=== PATIENT | male | born 1950 | race Hispanic/Latino ===

== ENCOUNTER 2018-06-24 06:07 | Inpatient (IN) | payer MEDICARE, OTHER ==
[2018-06-15 16:38] VITALS: BMI 27.7
[2018-06-24 06:57] LABS: BASO # 0.1 K/uL (0.0-0.2); BASO % 1.1 % (0.0-2.0); EOS # 0.2 K/uL (0.0-0.7); EOS % 2.4 % (0.0-4.0); HEMOGLOBIN 14.5 g/dL (12.0-18.0); LYMPH # 1.5 K/uL (1.0-4.3); LYMPH % 21.8 % (20.0-40.0); MEAN CELL VOLUME 93.4 fl (80.0-94.0); MEAN CORPUSCULAR HEMOGLOBIN 31.2 pg (27.0-31.0); MEAN CORPUSCULAR HGB CONC 33.4 g/dL (33.0-37.0); MEAN PLATELET VOLUME 8.7 fl (7.2-11.7); MONO # 0.5 K/uL (0.0-0.8); MONO % 7.3 % (0.0-10.0); NEUT # 4.6 K/uL (1.8-7.0); NEUT % 67.4 % (50.0-75.0); RBC 4.65 Mil/uL (4.40-5.90); RED CELL DISTRIBUTION WIDTH 14.3 % (11.5-14.5); WHITE BLOOD COUNT 6.8 K/uL (4.8-10.8)
--- NOTE | 2018-06-24 06:57 | CP.PCM.CON ---
History of Present Illness - History of Present Illness History of Present Illness: PMD; Dr Alvarez Ophthmologist: Dr Bauer Pc Tech: Raul Bowman MD Chief Complaint: Left hip Pain The Patient was seen and examined in the SDS Unit HPI: This is a 68 years old male with hx of CAD, HLD distant A Fib and left hip osteoarthritis. He has suffered this left hip pain while leaning on the left side and even while sleeping for years. Her has failed conventional treatment and has decided to have surgical management. At present he refers no SOB, chest pain nor palpitations. No fever, diarrhea nor urinary symptoms. PMH: HLD; a fIB; Herneated disc with back pain PSH: Coronary stents placementX5 SH: No illegal drug use; No smoking; No ETOH use; Live with FH: Significant for Past Patient History - Past Medical History & Family History Past Medical History?: Yes - Past Social History Smoking Status: Never Smoked - CARDIAC Hx Cardiac Disorders: Yes Hx Angina: Yes Hx Hypercholesterolemia: Yes Hx Hypertension: Yes Other/Comment: AFIB - PULMONARY Hx Respiratory Disorders: No - NEUROLOGICAL Hx Neurological Disorder: No - HEENT Hx HEENT Problems: No - RENAL Hx Chronic Kidney Disease: No - ENDOCRINE/METABOLIC Hx Endocrine Disorders: No - HEMATOLOGICAL/ONCOLOGICAL Hx Blood Disorders: No Hx Blood Transfusions: No Other/Comment: EASING BRUISING DUE TO BLOOD THINNER - INTEGUMENTARY Hx Dermatological Problems: No - MUSCULOSKELETAL/RHEUMATOLOGICAL Hx Musculoskeletal Disorders: Yes Hx Back Pain: Yes Hx Falls: No Hx Herniated Disk: Yes (5 HERNIATED DISC) - GENITOURINARY/GYNECOLOGICAL Hx Genitourinary Disorders: No - PSYCHIATRIC Hx Psychophysiologic Disorder: No - SURGICAL HISTORY Hx Surgeries: Yes Hx Angioplasty: Yes (X5) Hx Coronary Stent: Yes (X4) - ANESTHESIA Hx Anesthesia: Yes Hx Anesthesia Reactions: No Hx Malignant Hyperthermia: No Has any member of the family had a problem w/ anesthesia?: No Meds Allergies/Adverse Reactions: Allergies Allergy/AdvReac Type Severity Reaction Status Date / Time No Known Allergies Allergy Verified 06/24/18 06:45 Results - Labs Result Diagrams: 06/24/18 06:40 Assessment & Plan - Date & Time Date: 06/24/18 Time: 06:56
[2018-06-24] MEDS ORDERED: Lactated Ringer's 1,000 ML IV ONE ×4 (07:10→12:32)
[2018-06-24] MEDS ORDERED: Absorbable Gelatin Sponge Size 12-7 ONE ×3 (07:18→11:28)
[2018-06-24] MEDS ORDERED: ceFAZolin IV 1 gm in Dextrose 2 GM/100 ML BAG IVPB ONE (07:18)
[2018-06-24] MEDS ORDERED: Bacitracin Ointment 30 GM TUBE ONE (07:19)
[2018-06-24] MEDS ORDERED: Thrombin Topical 5,000 Int Units Spray Kit ONE ×3 (07:19→11:28)
[2018-06-24] MEDS ORDERED: EPINEPHrine 1 mg/ml (1:1000) Inj ONE (07:20)
[2018-06-24] MEDS ORDERED: Propofol 10 mg/ml Inj (20 ML) ONE (07:31)
[2018-06-24] MEDS ORDERED: Midazolam 2 MG/2 ML VIAL ONE (07:31)
[2018-06-24] MEDS ORDERED: Rocuronium 10 mg/ml (5 ml) ONE ×2 (07:32→09:28)
[2018-06-24] MEDS ORDERED: Succinylcholine Chloride 20 mg/ml Syr (5 ml) IV ONE (07:32)
[2018-06-24] MEDS ORDERED: ePHEDrine 50 mg/ml Inj ONE (07:32)
[2018-06-24] MEDS ORDERED: Morphine 1 mg/ml preservative-free Inj(Duramorph) ONE (07:34)
--- NOTE | 2018-06-24 07:36 | CP.PCM.CON ---
History of Present Illness - History of Present Illness History of Present Illness: Orthopedic consultation Dr. Bauer 68M with left hip DJD failed conservative mgmt and elected for THR. PMH: CAD, HTN, chol PSH: angioplasty x 5, multiple stents, recent stress test normal, cardiology eval on chart NKDA Review of Systems - Review of Systems All systems: reviewed and no additional remarkable complaints except - Musculoskeletal Musculoskeletal: As Per HPI Past Patient History - Past Medical History & Family History Past Medical History?: Yes Past Family History: Reviewed and not pertinent - Past Social History Smoking Status: Never Smoked - CARDIAC Hx Cardiac Disorders: Yes Hx Angina: Yes Hx Hypercholesterolemia: Yes Hx Hypertension: Yes Other/Comment: AFIB - PULMONARY Hx Respiratory Disorders: No - NEUROLOGICAL Hx Neurological Disorder: No - HEENT Hx HEENT Problems: No - RENAL Hx Chronic Kidney Disease: No - ENDOCRINE/METABOLIC Hx Endocrine Disorders: No - HEMATOLOGICAL/ONCOLOGICAL Hx Blood Disorders: No Hx Blood Transfusions: No Other/Comment: EASING BRUISING DUE TO BLOOD THINNER - INTEGUMENTARY Hx Dermatological Problems: No - MUSCULOSKELETAL/RHEUMATOLOGICAL Hx Musculoskeletal Disorders: Yes Hx Back Pain: Yes Hx Falls: No Hx Herniated Disk: Yes (5 HERNIATED DISC) - GENITOURINARY/GYNECOLOGICAL Hx Genitourinary Disorders: No - PSYCHIATRIC Hx Psychophysiologic Disorder: No - SURGICAL HISTORY Hx Surgeries: Yes Hx Angioplasty: Yes (X5) Hx Coronary Stent: Yes (X4) - ANESTHESIA Hx Anesthesia: Yes Hx Anesthesia Reactions: No Hx Malignant Hyperthermia: No Has any member of the family had a problem w/ anesthesia?: No Meds Allergies/Adverse Reactions: Allergies Allergy/AdvReac Type Severity Reaction Status Date / Time No Known Allergies Allergy Verified 06/24/18 06:45 Physical Exam - Constitutional Appears: Well (calves soft NT neg homans), No Acute Distress - Head Exam Head Exam: ATRAUMATIC - Respiratory Exam Respiratory Exam: NORMAL BREATHING PATTERN - Cardiovascular Exam Additional comments: +DP/PT pulses - Expanded Lower Extremities Exam Left Neuro vacular tendon exam: no vascular compromise - Neurological Exam Neurological exam: Alert, Oriented x3 - Psychiatric Exam Psychiatric exam: Normal Affect, Normal Mood - Skin Skin Exam: Dry, Intact, Normal Color, Warm Results - Vital Signs Recent Vital Signs: Last Vital Signs Temp 97.6 F 06/24/18 07:00 Pulse 57 L 06/24/18 07:00 Resp 18 06/24/18 07:00 BP 125/62 06/24/18 07:00 Pulse Ox 98 06/24/18 07:00 - Labs Result Diagrams: 06/24/18 06:40 Labs: Laboratory Results - last 24 hr 06/24/18 06:40 WBC 6.8 RBC 4.65 Hgb 14.5 Hct 43.4 MCV 93.4 MCH 31.2 H MCHC 33.4 RDW 14.3 Plt Count 267 MPV 8.7 Neut % (Auto) 67.4 Lymph % (Auto) 21.8 [place] % (Auto) 7.3 Eos % (Auto) 2.4 Baso % (Auto) 1.1 Neut # (Auto) 4.6 Lymph # (Auto) 1.5 [place] # (Auto) 0.5 Eos # (Auto) 0.2 Baso # (Auto) 0.1 - Impressions Impression: labs and clearance on chart, reviewed Assessment & Plan (1) Primary osteoarthritis of left hip Assessment and Plan: NPO for OR Status: Acute (2) CAD (coronary artery disease) Status: Acute (3) HTN (hypertension) Status: Acute (4) Hypercholesteremia Status: Acute
[2018-06-24] MEDS ORDERED: Phenylephrine 10 mg/ml Inj ONE ×2 (08:09→09:28)
--- NOTE | 2018-06-24 08:12 | CP.PCM.HP ---
History of Present Illness - History of Present Illness History of Present Illness: PMD; Dr Alvarez Ophthmologist: Dr Bauer Spacecraft Systems Engineer: Raul Bowman MD Chief Complaint: Left hip Pain The Patient was seen and examined in the SDS Unit HPI: This is a 68 years old male with hx of CAD, HLD distant A Fib and left hip osteoarthritis. He has suffered this left hip pain while leaning on the left side and even while sleeping for years. Her has failed conventional treatment and has decided to have surgical management. At present he refers no SOB, chest pain nor palpitations. No fever, diarrhea nor urinary symptoms. PMH: HLD; a fIB; Herneated disc with back pain PSH: Coronary stents placement X4 SH: No illegal drug use; No smoking; No ETOH use; Live with FH: Significant for Heart disease Allergies: NKDA Medication: Metoprolol 25mg daily; Brilinta 90bg BID; ASA 81mg Daily; Crestor 10mg Daily; Fenofibrate 150mg Daily Present on Admission - Present on Admission Any Indicators Present on Admission: No History of DVT/PE: No History of Uncontrolled Diabetes: No Urinary Catheter: No Decubitus Ulcer Present: No Review of Systems - Constitutional Constitutional: absent: Anorexia, Chills, Fatigue, Fever, Headache - EENT Eyes: Requires Corrective Lenses. absent: Blind Spots, Blurred Vision, Diplopia Ears: absent: Decreased Hearing, Ear Discharge, Tinnitus Nose/Mouth/Throat: absent: Epistaxis, Nasal Discharge, Sinus Pain, Sinus Pressure - Cardiovascular Cardiovascular: absent: Chest Pain at Rest, Dyspnea, Edema - Respiratory Respiratory: absent: Cough, Dyspnea, Wheezing - Gastrointestinal Gastrointestinal: absent: Constipation, Diarrhea, Nausea, Vomiting - Genitourinary Genitourinary: absent: Dysuria, Flank Pain, Urinary Frequency - Musculoskeletal Musculoskeletal: Arthralgias, Back Pain. absent: Myalgias - Integumentary Integumentary: absent: Pruritus, Rash, Skin Ulcer, Sores, Striae, Swelling - Neurological Neurological: absent: Confusion, Focal Weakness, Headaches, Weakness - Psychiatric Psychiatric: absent: Anxiety, Depression, Panic Attacks - Endocrine Endocrine: absent: Palpitations, Polydipsia, Polyphagia, Polyuria - Hematologic/Lymphatic Hematologic: absent: Easy Bleeding, Easy Bruising Past Patient History - Past Medical History & Family History Past Medical History?: Yes Past Family History: Reviewed and not pertinent - Past Social History Smoking Status: Never Smoked Chewing Tobacco Use: No Cigar Use: No Alcohol: None Drugs: Denies Home Situation {Lives}: With Family - CARDIAC Hx Cardiac Disorders: Yes Hx Angina: Yes Hx Hypercholesterolemia: Yes Other/Comment: AFIB. CAD - PULMONARY Hx Respiratory Disorders: No - NEUROLOGICAL Hx Neurological Disorder: No - HEENT Hx HEENT Problems: No - RENAL Hx Chronic Kidney Disease: No - ENDOCRINE/METABOLIC Hx Endocrine Disorders: No - HEMATOLOGICAL/ONCOLOGICAL Hx Blood Disorders: No Hx Blood Transfusions: No Other/Comment: EASING BRUISING DUE TO BLOOD THINNER - INTEGUMENTARY Hx Dermatological Problems: No - MUSCULOSKELETAL/RHEUMATOLOGICAL Hx Musculoskeletal Disorders: Yes Hx Back Pain: Yes Hx Falls: No Hx Herniated Disk: Yes (5 HERNIATED DISC) - GASTROINTESTINAL Hx Gastrointestinal Disorders: No - GENITOURINARY/GYNECOLOGICAL Hx Genitourinary Disorders: No - PSYCHIATRIC Hx Psychophysiologic Disorder: No - SURGICAL HISTORY Hx Surgeries: Yes Hx Angioplasty: Yes (X5) Hx Coronary Stent: Yes (X4) - ANESTHESIA Hx Anesthesia: Yes Hx Anesthesia Reactions: No Hx Malignant Hyperthermia: No Has any member of the family had a problem w/ anesthesia?: No Meds Allergies/Adverse Reactions: Allergies Allergy/AdvReac Type Severity Reaction Status Date / Time No Known Allergies Allergy Verified 06/24/18 06:45 Physical Exam - Constitutional Appears: No Acute Distress - Head Exam Head Exam: ATRAUMATIC, NORMAL INSPECTION, NORMOCEPHALIC - Eye Exam Eye Exam: EOMI, Normal appearance Pupil Exam: NORMAL ACCOMODATION, PERRL - ENT Exam ENT Exam: Mucous Membranes Moist, Normal Exam, Normal External Ear Exam - Neck Exam Neck exam: Positive for: Full Rom, Normal Inspection. Negative for: L ymphadenopathy, Tenderness - Respiratory Exam Respiratory Exam: Clear to Auscultation Bilateral. absent: Rales, Rhonchi, Wheezes - Cardiovascular Exam Cardiovascular Exam: REGULAR RHYTHM, RRR, +S1, +S2 - GI/Abdominal Exam GI & Abdominal Exam: Normal Bowel Sounds, Soft. absent: Mass, Organomegaly, Tenderness - Rectal Exam Rectal Exam: Deferred - Extremities Exam Extremities exam: Positive for: full ROM, normal inspection Additional comments: Left hip pain on standing with weight on the left side - Back Exam Back exam: NORMAL INSPECTION. absent: CVA tenderness (L), CVA tenderness (R) - Neurological Exam Neurological exam: Alert, CN II-XII Intact, Oriented x3, Reflexes Normal - Psychiatric Exam Psychiatric exam: Normal Affect, Normal Mood - Skin Skin Exam: Dry, Normal Color, Warm Results - Vital Signs Recent Vital Signs: Last Vital Signs Temp 97.6 F 06/24/18 07:00 Pulse 57 L 06/24/18 07:00 Resp 18 06/24/18 07:00 BP 125/62 06/24/18 07:00 Pulse Ox 98 06/24/18 07:00 - Labs Result Diagrams: 06/24/18 06:40 Labs: Laboratory Results - last 24 hr 06/24/18 06/24/18 06:40 06:40 WBC 6.8 RBC 4.65 Hgb 14.5 Hct 43.4 MCV 93.4 MCH 31.2 H MCHC 33.4 RDW 14.3 Plt Count 267 MPV 8.7 Neut % (Auto) 67.4 Lymph % (Auto) 21.8 [place] % (Auto) 7.3 Eos % (Auto) 2.4 Baso % (Auto) 1.1 Neut # (Auto) 4.6 Lymph # (Auto) 1.5 [place] # (Auto) 0.5 Eos # (Auto) 0.2 Baso # (Auto) 0.1 Crossmatch See Detail BBK History Checked No verified bt Assessment & Plan - Assessment and Plan (Free Text) Plan: 68 years old male with hx of CAD, HLD distant A Fib and left hip osteoarthritis. He has suffered this left hip pain while leaning on the left side and even while sleeping for years. Her has failed conventional treatment and has decided to have surgical management. At present he refers no SOB, chest pain nor palpitations. No fever, diarrhea nor urinary symptoms. #. Left Hip Osteoarthritis #. Consult Orthopedic, Dr Bauer - Orthopedic management - Pain management - OT/PT #. CAD - Brilinta on hold prior to surgery - Metoprolol - ASA - Crestor #. HLD - Crestor - Fenofibrate #. Hx of A Fib now Sinus Rhythm. Not on anticoagulant #. DVT prophylaxis with SCD Post surgery Anticoagulant day#1 Post surgery #. Code Status: Full Guero Bueno MD - Date & Time Date: 06/24/18 Time: 08:12
[2018-06-24] MEDS ORDERED: Sevoflurane - Inhalation Anesthetic Liq (250 ml) ONE (10:00)
[2018-06-24] MEDS ORDERED: Lactated Ringer's 500 ML IV ONE (12:00)
[2018-06-24] MEDS ORDERED: Neostigmine 1:1000 (1 mg/ml) Inj ONE (12:07)
--- NOTE | 2018-06-24 12:13 | PCM.SURG1 ---
Surgeon's Initial Post Op Note - Surgeon's Notes Surgeon: Zheng Bauer MD Project Officer: Saad Blake PA-C, CRNA Type of Anesthesia: General Endo, Spinal Anesthesia Administered By: Dr. Tristan Pre-Operative Diagnosis: Left hip DJD Operative Findings: severe osteophytosis Post-Operative Diagnosis: same Operation Performed: Left total hip replacement. Femoral neck osteotomy (complex). Iliotibial release. Autograft bone graft to acetabulum and femur. Computer navigation Specimen/Specimens Removed: femoral head Estimated Blood Loss: EBL {In ML}: 135 Blood Products Given: N/A Drains Used: No Drains Post-Op Condition: Fair Date of Surgery/Procedure: 06/24/18 Time of Surgery/Procedure: 12:14 (Incision 910)
[2018-06-24] MEDS ORDERED: Bisacodyl 5mg EC Tab PO PRN (12:15)
[2018-06-24] MEDS ORDERED: oxyCODONE 10 mg Immediate Release Tab PO PRN (12:20)
[2018-06-24] MEDS ORDERED: DiphenhydrAMINE 50 mg/ml Inj IVP PRN (12:41)
[2018-06-24] MEDS ORDERED: Lactated Ringer's 1,000 ML IV SCH (13:00)
--- NOTE | 2018-06-24 13:53 | RAD ---
Date of service: 06/24/2018 PROCEDURE: Intraoperative Fluoroscopy. HISTORY: LEFT HIP FINDINGS: Fluoroscopic assistance was provided. Fluoroscopy time = 19.6 sec.. Please refer to the operative report from JENN Mariee.
[2018-06-24] MEDS: Sodium Chloride 0.9% 1,000 ML IV SCH ×2 (16:40→23:33)
--- NOTE | 2018-06-24 17:26 | CP.PCM.PCO ---
Progress Note - Review of Symptoms Events since last encounter: Patient seen and evaluated. patient complaining of dizziness and nausea. patient refusing medication at this time and states he would like to eat first. Patient advised to let nursing know if symptoms worsen. Dressing C/D/I
[2018-06-24] MEDS: ceFAZolin 2 GM in Sodium Chloride 0.9% 100 ML IVPB SCH ×2 (18:00→23:33)
[2018-06-25 06:56] LABS: HEMOGLOBIN 8.7 g/dL (12.0-18.0); MEAN CELL VOLUME 94.3 fl (80.0-94.0); MEAN CORPUSCULAR HEMOGLOBIN 31.7 pg (27.0-31.0); MEAN CORPUSCULAR HGB CONC 33.6 g/dL (33.0-37.0); RBC 2.74 Mil/uL (4.40-5.90); RED CELL DISTRIBUTION WIDTH 13.9 % (11.5-14.5); WHITE BLOOD COUNT 9.2 K/uL (4.8-10.8)
[2018-06-25 07:16] LABS: CALCIUM 7.4 mg/dL (8.4-10.2)
[2018-06-25] MEDS ORDERED: Sodium Chloride 0.9% 1,000 ML IV SCH ×2 (07:45→09:15)
[2018-06-25] MEDS ORDERED: Metoprolol Succinate 50 mg XL Tab PO SCH (09:00)
--- NOTE | 2018-06-25 09:33 | PCM.RRT ---
<Mary James - Last Filed: 06/25/18 09:31> OTR TANKER TRUCK DRIVER Nurse Assessment - Situation OTR TANKER TRUCK DRIVER Responder Arrival Time: 08:58 Location: [facility] Surg Room Number: 651-2 OTR TANKER TRUCK DRIVER Reason for Call: Hypotension, Change in Mental Status OTR TANKER TRUCK DRIVER Called By: Other Disciplines - IV IV Inserted during OTR TANKER TRUCK DRIVER?: No IV Fluids Initiated During OTR TANKER TRUCK DRIVER?: NS Bolus 1L @ 9:00 AM - Respiratory Oxygen Delivery Method: Room Air Received Nebulizer Treatments: No Was the Patient Ventilated with Bag/Mask 100% O2?: No Secretions Suctioned?: No Was the Patient Intubated?: No Was the Patient Placed on a Ventilator?: No - Diagnostic Test Ordered EKG: Yes Chest X-Ray: No CT Scan: No CPR started during OTR TANKER TRUCK DRIVER?: No - Vital Signs Vital Signs: 8:59 AM: BP 96/58, HR 95, O2 97%, Temp 98.7 F 9:01 AM: BP 120/65, HR 95, O2 97%, Temp 98.7 F 9:07 AM: BP 122/73, HR 95, O2 97%, Temp 98.7 F - Danial Coma Scale Coma Scale Eye Opening: Spontaneous Coma Scale Motor: Obeys Commands Movement Coma Scale Verbal: Oriented Coma Scale Total: 15 - Time OTR TANKER TRUCK DRIVER Ended Time OTR TANKER TRUCK DRIVER Ended: 09:25 - Vital Signs at end of OTR TANKER TRUCK DRIVER Vital Signs at end of OTR TANKER TRUCK DRIVER: 9:07 AM: BP 122/73, HR 95, O2 97%, Temp 98.7 F - Recommendations OTR TANKER TRUCK DRIVER Level of Care Recommendations: Remain in current setting Notifications: Attending Physician I.Reason for OTR TANKER TRUCK DRIVER - A) Acute Change in Patient: (Select all that apply): Staff member or family is worried about patient Subjective: S: 68 years old male with hx of CAD, HLD distant A Fib and left hip osteoarthritis POD1 Left Hip replacement with Dr. Bauer. OTR TANKER TRUCK DRIVER was called for orthostatic hypotension as patient was getting out of bed for physical therapy. As per physical therapy, patient was momentarily unresponsive, however was alert as soon as he was laid back in bed. Patient states he became dizzy. Patient's BP when OTR TANKER TRUCK DRIVER was called was 96/58, HR 95. Patient further complaning of urinary retention. Patient lying in bed appears comfortable and denies chest pain, or dyspnea A/P: 68 years old male with hx of CAD, HLD distant A Fib and left hip osteoarthritis POD Left Hip replacement with Dr. Bauer. OTR TANKER TRUCK DRIVER was called for or thostatic hypotension as patient was getting out of bed for physical therapy. Patient CBC from this morning showed H/H of 8.7/25.8. -Accucheck BS 130 mg/dL -NS Bolus 1L @ 9:00 AM -Continue to monitor BP closely -EKG Performed -Cardio consult placed, patient to be evaluated by Dr. Lamas -Walker catheter for urinary retention -Hold metoprolol -Patient encouraged to eat OTR TANKER TRUCK DRIVER lead by Dr. Du Resident: Dr. Barbara James, Dr. La Villalobos, Dr. Rosalia Rojas, Dr. Prudencio Russo - Neurological Status (Select all that apply): Alert, Oriented, Verbal, Follows Commands - Respiratory Oxygen Delivery Method: Room Air - Constitutional Appears: Well, Non-toxic, No Acute Distress - Head Head Exam: ATRAUMATIC, NORMOCEPHALIC - Eyes Eye Exam: Normal appearance, PERRL - Respiratory Exam Respiratory Exam: Clear to Ausculation Bilateral, NORMAL BREATHING PATTERN. absent: Rales, Rhonchi, Wheezes - Cardiovascular Exam Cardiovascular Exam: REGULAR RHYTHM, +S1, +S2 - GI/Abdominal Exam GI & Abdominal Exam: Soft, Normal Bowel Sounds. absent: Firm, Guarding, Rigid - Neurological Exam Neurological Exam: Alert, Awake, Oriented x3 - Extremities Exam Extremities Exam: Normal Capillary Refill Plan - Assessment of Findings&Treatment Plan A/P: 68 years old male with hx of CAD, HLD distant A Fib and left hip osteoarthritis POD Left Hip replacement with Dr. Bauer. OTR TANKER TRUCK DRIVER was called for orthostatic hypotension likely secondary to acute blood loss anemia. -Accucheck BS 130 mg/dL -NS Bolus 1L @ 9:00 AM -Continue to monitor BP closely -EKG Performed -Cardio consult placed, patient to be evaluated by Dr. Lamas -Walker catheter for urinary retention -Hold metoprolol -Patient encouraged to eat <Aaliyah Du - Last Filed: 06/25/18 15:38> OTR TANKER TRUCK DRIVER Nurse Assessment - Vital Signs Vital Signs: Rapid Response Vital Sign Blood Pressure 120/65 Pulse Rate 95 Respiratory Rate 16 Temperature 98.7 F Oxygen Saturation 97 - Vital Signs at end of OTR TANKER TRUCK DRIVER Vital Signs at end of OTR TANKER TRUCK DRIVER: Rapid Response End Vital Sign Blood Pressure 113/70 Pulse Rate 95 Respiratory Rate 17 Temperature 98.7 F O2 Sat by Pulse Oximetry 97 Attending/Attestation - Attestation I have personally seen and examined this patient.: Yes I have fully participated in the care of the patient.: Yes I have reviewed all pertinent clinical information, including history, physical exam and plan: Yes Notes (Text): Lightheadedness/Orthostatic Hypotension likely due to Hypovolemia - BP was 98 systolic while sitted and immediately went up to 120 78 upon lying down - IVF NS bolus given - EKG done : no acute ST T changes - Cardio consulted - discussed case with Dr Lamas - he rec holding the Metoprolol and transfusing PRBC - however pt refused transfusion - IV Venofer given - Ortho PA notified of event
--- NOTE | 2018-06-25 10:10 | RAD ---
PROCEDURE: Left Hip X-ray Radiographs. HISTORY: s/p THR, pt in pacu COMPARISON: None. FINDINGS: BONES: Status post left total hip replacement. No evidence of dislocation. Prosthesis grossly intact. No acute fracture. JOINTS: As above SOFT TISSUES: Postoperative changes in soft tissues adjacent to left hip OTHER FINDINGS: None. IMPRESSION: Left total hip replacement.
[2018-06-25] MEDS: Enoxaparin 40 mg Syringe SC SCH (10:24)
--- NOTE | 2018-06-25 11:07 | CP.PCM.CON ---
History of Present Illness - History of Present Illness History of Present Illness: THE PATIENT IS A 68 YEAR OLD MALE WHO WAS ADMITTED TO [facility] YESTERDAY FOR A LEFT TKR. HE ALSO HAS A HISTORY OF CAD, AN ATRIAL FIBRILLATION EPISODE IN THE PAST AND HYPERLIPIDEMIA. HE HAD ANGINA IN 1998 AND HAD A LAD STENT INSERTION AND SINCE THEN HAD A TOTAL OF 4 STENTS INSERTED, 3 IN THE LAD AND 1 IN THE LEFT CIRCUMFLEX. HE HAD AN LAD ANGIOPLASTY IN DECEMBER 2017 IN THE LAD STENTS AREA. HE HAD BEEN FINE SINCE THEN AND HAD A NUCLEAR STRESS TEST LAST WEEK THAT WAS NORMAL. THIS MORNING WITH PHYSICAL THERAPY HE WAS WEAK AND ALMOST BLACKED OUT BUT RECOVERED QUICKLY ON HE GOT BACK IN BED AND AN TEACHERS AIDE WAS CALLED. HE DID NOT HAVE ANY CHEST PAIN OR SOB. HIS SYSTOLIC BP WAS IN THE 90'S THIS AM BUT QUICKLY WENT BACK TO THE 120'S AFTER REST. I WAS ASKED TO SEE AND FOLLOW HIM. HE STATES THAT HE BELIEVES IT WAS DUE TO NOT EATING OR DRINKING MUCH FOR 3 DAYS, PAIN MEDS AND ANESTHESIA AND ANEMIA. Past Patient History - Past Medical History & Family History Past Medical History?: Yes Past Family History: Reviewed and not pertinent - Past Social History Smoking Status: Never Smoked - CARDIAC Hx Cardiac Disorders: Yes Hx Angina: Yes Hx Hypercholesterolemia: Yes Hx Hypertension: Yes Other/Comment: AFIB - PULMONARY Hx Respiratory Disorders: No - NEUROLOGICAL Hx Neurological Disorder: No - HEENT Hx HEENT Problems: No - RENAL Hx Chronic Kidney Disease: No - ENDOCRINE/METABOLIC Hx Endocrine Disorders: No - HEMATOLOGICAL/ONCOLOGICAL Hx Blood Disorders: No Hx Blood Transfusions: No Other/Comment: EASING BRUISING DUE TO BLOOD THINNER - INTEGUMENTARY Hx Dermatological Problems: No - MUSCULOSKELETAL/RHEUMATOLOGICAL Hx Musculoskeletal Disorders: Yes Hx Back Pain: Yes Hx Falls: No Hx Herniated Disk: Yes (5 HERNIATED DISC) - GASTROINTESTINAL Hx Gastrointestinal Disorders: No - GENITOURINARY/GYNECOLOGICAL Hx Genitourinary Disorders: No - PSYCHIATRIC Hx Psychophysiologic Disorder: No - SURGICAL HISTORY Hx Surgeries: Yes Hx Angioplasty: Yes (X5) Hx Coronary Stent: Yes (X4) - ANESTHESIA Hx Anesthesia: Yes Hx Anesthesia Reactions: No Hx Malignant Hyperthermia: No Has any member of the family had a problem w/ anesthesia?: No Meds Home Medications: Home Medication List Medication Instructions Recorded Confirmed Type Docusate [Colace] 100 mg PO BID #60 cap 01/21/19 Rx Enoxaparin [Lovenox] 40 mg SC DAILY syr 06/29/18 Rx Folic Acid 1 mg PO DAILY tab 06/29/18 Rx Ticagrelor [Brilinta] 90 mg PO BID tab 06/29/18 Rx Allergies/Adverse Reactions: Allergies Allergy/AdvReac Type Severity Reaction Status Date / Time No Known Allergies Allergy Verified 06/30/18 14:24 - Medications Medications: Current Medications Acetaminophen (Tylenol 325mg Tab) 650 mg PO Q6H [facility] Last Admin: 06/24/18 18:20 Dose: 650 mg Aspirin (Ecotrin) 81 mg PO DAILY [facility] Last Admin: 06/25/18 10:34 Dose: Not Given Atorvastatin Calcium (Lipitor) 20 mg PO DAILY [facility] Last Admin: 06/25/18 10:24 Dose: 20 mg Bisacodyl (Dulcolax) 10 mg PO HS PRN PRN Reason: Constipation Diphenhydramine HCl (Benadryl) 50 mg IVP Q6 PRN PRN Reason: Itching / Pruritus Docusate Sodium (Colace) 100 mg PO BID [facility] Last Admin: 06/25/18 10:23 Dose: 100 mg Enoxaparin Sodium (Lovenox) 40 mg SC DAILY [facility]; Protocol Last Admin: 06/25/18 10:24 Dose: 40 mg Fenofibrate (Tricor) 145 mg PO DAILY [facility] Last Admin: 06/25/18 10:36 Dose: 145 mg Hydromorphone HCl (Dilaudid) 1 mg IVP Q4 PRN PRN Reason: Pain, severe (8-10) Iron Sucrose 100 mg/ Sodium (Chloride) 105 mls @ 105 mls/hr IVPB DAILY [facility] Sodium Chloride (Sodium Chloride 0.9%) 1,000 mls @ 100 mls/hr IV .Q10H [facility] Stop: 06/26/18 07:44 Last Admin: 06/25/18 10:16 Dose: 100 mls/hr Metoclopramide HCl (Reglan) 10 mg IVP Q6H PRN PRN Reason: Nausea/Vomiting Metoprolol Succinate (Toprol Xl) 50 mg PO DAILY [facility] Last Admin: 06/25/18 10:35 Dose: Not Given Ondansetron HCl (Zofran Inj) 4 mg IVP Q6 PRN PRN Reason: Nausea/Vomiting Last Admin: 06/24/18 19:24 Dose: 4 mg Oxycodone HCl (Oxycodone Immediate Release Tab) 10 mg PO Q4H PRN PRN Reason: Pain, moderate (4-7) Ticagrelor (Brilinta) 90 mg PO DAILY [facility] Last Admin: 06/25/18 10:23 Dose: 90 mg Physical Exam - Respiratory Exam Respiratory Exam: Clear to Auscultation Bilateral - Cardiovascular Exam Cardiovascular Exam: REGULAR RHYTHM, +S1, +S2 - Extremities Exam Additional comments: NO LE EDEMA - Additional Findings Additional findings: EKG AFTER THE TEACHERS AIDE SHOWED NSR, NSSTT CHANGES H/H 14 YESTERDAY AM H/H 8.7/25.8 THIS AM BUN 36, CR 1.6 K+ 4.6 GLU 130 Results - Vital Signs Recent Vital Signs: Last Vital Signs Temp 98.7 F 06/25/18 08:52 Pulse 95 H 06/25/18 10:35 Resp 20 06/25/18 08:00 BP 96/58 L 06/25/18 10:35 Pulse Ox 96 06/25/18 08:00 - Labs Result Diagrams: 06/30/18 05:40 06/30/18 05:40 Labs: Laboratory Results - last 24 hr 06/24/18 06/24/18 06/25/18 06:40 20:57 05:55 WBC 9.2 RBC 2.74 L Hgb 8.7 L D Hct 25.8 L MCV 94.3 H MCH 31.7 H MCHC 33.6 RDW 13.9 Plt Count 214 Sodium Potassium Chloride Carbon Dioxide Anion Gap BUN Creatinine Est GFR ( Amer) Est GFR (Non-Af Amer) POC Glucose (mg/dL) Random Glucose Calcium Blood Type Confirm A POSITIVE Crossmatch See Detail 06/25/18 06/25/18 05:55 09:00 WBC RBC Hgb Hct MCV MCH MCHC RDW Plt Count Sodium 134 Potassium 4.6 Chloride 104 Carbon Dioxide 22 Anion Gap 13 BUN 36 H Creatinine 1.6 H Est GFR ( Amer) 52 Est GFR (Non-Af Amer) 43 POC Glucose (mg/dL) 130 H Random Glucose 123 H Calcium 7.4 L Blood Type Confirm Crossmatch Assessment & Plan - Assessment and Plan (Free Text) Assessment: S/P TOTAL LKR YESTERDAY CAD HISTORY HYPERLIPIDEMIA THIS MORNING'S WEAKNESS EPISODE WAS MOST PROBABLY ORTHOSTATIC HYPOTENSION FROM A COMBINATION OF DEHYDRATION, EFFECTS OF ANESTHESIA AND PAIN MEDS WELL ANEMIA Plan: HOLD METOPROLOL AND MINIMIZE PAIN MEDICATIONS CONTINUE IV FLUIDS AND IV IRON, ASPIRIN, BRILINTA, LOVENOX, ATORVASTATIN, FENOFIBRATE I RECOMMENDED THAT HE HAVE 2U RBCS BUT HE IS APPREHENSIVE TO RECEIVE BLOOD AND DECLINES IT AT THE PRESENT TIME-PATIENT STRONGLY URGED TO HAVE A BLOOD TRANSFUSION IF THE H/H FALL ANY FURTHER CBC IN AM
--- NOTE | 2018-06-25 11:07 | CP.PCM.PN ---
<Mary James - Last Filed: 06/25/18 11:23> Subjective - Date & Time of Evaluation Date of Evaluation: 06/25/18 Time of Evaluation: 11:01 - Subjective Subjective: 68 y/o male patient with past medical history of CAD, HLD distant A Fib and left hip osteoarthritis was seen and evaluated this morning. Rapid Response was called on the patient this morning due to orthostatic hypotension as he was getting up to perform physical therapy. Patient was seen prior to rapid response sitting comfortably in bed, patient had stated he was unable to void. Post rapid response, patient is now resting comfortably in bed, complains of dizziness, however, denies shortness of breath or chest pain. Marcos catheter inserted and clear yellow urine noted. Objective - Vital Signs/Intake and Output Vital Signs (last 24 hours): Temp Pulse Resp BP Pulse Ox 98.7 F 95 H 20 96/58 L 96 06/25/18 08:52 06/25/18 10:35 06/25/18 08:00 06/25/18 10:35 06/25/18 08:00 - Medications Medications: Current Medications Acetaminophen (Tylenol 325mg Tab) 650 mg PO Q6H [facility] Last Admin: 06/24/18 18:20 Dose: 650 mg Aspirin (Ecotrin) 81 mg PO DAILY [facility] Last Admin: 06/25/18 10:34 Dose: Not Given Atorvastatin Calcium (Lipitor) 20 mg PO DAILY [facility] Last Admin: 06/25/18 10:24 Dose: 20 mg Bisacodyl (Dulcolax) 10 mg PO HS PRN PRN Reason: Constipation Diphenhydramine HCl (Benadryl) 50 mg IVP Q6 PRN PRN Reason: Itching / Pruritus Docusate Sodium (Colace) 100 mg PO BID [facility] Last Admin: 06/25/18 10:23 Dose: 100 mg Enoxaparin Sodium (Lovenox) 40 mg SC DAILY [facility]; Protocol Last Admin: 06/25/18 10:24 Dose: 40 mg Fenofibrate (Tricor) 145 mg PO DAILY [facility] Last Admin: 06/25/18 10:36 Dose: 145 mg Hydromorphone HCl (Dilaudid) 1 mg IVP Q4 PRN PRN Reason: Pain, severe (8-10) Iron Sucrose 100 mg/ Sodium (Chloride) 105 mls @ 105 mls/hr IVPB DAILY [facility] Sodium Chloride (Sodium Chloride 0.9%) 1,000 mls @ 100 mls/hr IV .Q10H [facility] Stop: 06/26/18 07:44 Last Admin: 06/25/18 10:16 Dose: 100 mls/hr Metoclopramide HCl (Reglan) 10 mg IVP Q6H PRN PRN Reason: Nausea/Vomiting Metoprolol Succinate (Toprol Xl) 50 mg PO DAILY [facility] Last Admin: 06/25/18 10:35 Dose: Not Given Ondansetron HCl (Zofran Inj) 4 mg IVP Q6 PRN PRN Reason: Nausea/Vomiting Last Admin: 06/24/18 19:24 Dose: 4 mg Oxycodone HCl (Oxycodone Immediate Release Tab) 10 mg PO Q4H PRN PRN Reason: Pain, moderate (4-7) Ticagrelor (Brilinta) 90 mg PO DAILY [facility] Last Admin: 06/25/18 10:23 Dose: 90 mg - Labs Labs: 06/25/18 05:55 06/25/18 05:55 - Constitutional Appears: Well, Non-toxic, No Acute Distress - Head Exam Head Exam: ATRAUMATIC, NORMOCEPHALIC - Eye Exam Eye Exam: Normal appearance, PERRL - ENT Exam ENT Exam: Mucous Membranes Dry - Neck Exam Neck Exam: Full ROM. absent: Lymphadenopathy - Respiratory Exam Respiratory Exam: Clear to Ausculation Bilateral, NORMAL BREATHING PATTERN. absent: Rales, Rhonchi, Wheezes - Cardiovascular Exam Cardiovascular Exam: REGULAR RHYTHM, +S1, +S2 - GI/Abdominal Exam GI & Abdominal Exam: Soft, Normal Bowel Sounds. absent: Firm, Guarding, Rigid - Neurological Exam Neurological Exam: Alert, Awake, Oriented x3 - Psychiatric Exam Psychiatric exam: Normal Affect, Normal Mood - Skin Skin Exam: Dry, Pallor Assessment and Plan - Assessment and Plan (Free Text) Assessment: 68 years old male with hx of CAD, HLD distant A Fib and left hip osteoarthritis. He has suffered this left hip pain while leaning on the left side and even while sleeping for years. Rapid response called on patient this AM due to orthostatic hypotension likely secondary to acute blood loss anemia. Plan: Left Hip Osteoarthritis surgery POD1 - Orthopedic management - Pain controlled - OT/PT- recommendations appreciated Hypotension likely secondary to acute blood loss anemia - Orthostatic - Acute, improving - Cardiology consult, Dr. Lamas- recommendations appreciated- cardiology recommended 2U of RBCs, patient is declining at this time. Patient urged to have blood transfusion if H/H falls any further Urinary Retention - acute, symptomatic - marcos catheter in place Acute Blood Loss Anemia post-op - H/H 8.7/25.8 - Continue to monitor - Transfuse as needed - Cardiology consult, Dr. Lamas- recommendations appreciated- cardiology recommended 2U of RBCs, patient is declining at this time. Patient urged to have blood transfusion if H/H falls any further - F/U CBC in the AM Coronary Artery Disease - Continue Brilinta, ASA, Lipitor - Hold Metoprolol at this time HLD - chronic, controlled - continue Lipitor and Fenofibrate Hx of A Fib now Sinus Rhythm - Not on anticoagulant DVT prophylaxis - Lovenox 40 mg SC DAILY <Aaliyah Du - Last Filed: 06/25/18 15:49> Objective - Vital Signs/Intake and Output Vital Signs (last 24 hours): Temp Pulse Resp BP Pulse Ox 100.0 F H 86 20 106/62 96 06/25/18 15:12 06/25/18 15:12 06/25/18 15:12 06/25/18 15:12 06/25/18 08:40 Intake and Output: 06/25/18 06/25/18 06:59 18:59 Intake Total 20 Balance 20 - Medications Medications: Current Medications Acetaminophen (Tylenol 325mg Tab) 975 mg PO Q6 PRN PRN Reason: Pain, moderate (4-7) Aspirin (Ecotrin) 81 mg PO DAILY [facility] Last Admin: 06/25/18 10:34 Dose: Not Given Atorvastatin Calcium (Lipitor) 20 mg PO DAILY [facility] Last Admin: 06/25/18 10:24 Dose: 20 mg Bisacodyl (Dulcolax) 10 mg PO HS PRN PRN Reason: Constipation Diphenhydramine HCl (Benadryl) 50 mg IVP Q6 PRN PRN Reason: Itching / Pruritus Docusate Sodium (Colace) 100 mg PO BID [facility] Last Admin: 06/25/18 10:23 Dose: 100 mg Enoxaparin Sodium (Lovenox) 40 mg SC DAILY [facility]; Protocol Last Admin: 06/25/18 10:24 Dose: 40 mg Fenofibrate (Tricor) 145 mg PO DAILY [facility] Last Admin: 06/25/18 10:36 Dose: 145 mg Hydromorphone HCl (Dilaudid) 1 mg IVP Q4 PRN PRN Reason: Pain, severe (8-10) Iron Sucrose 100 mg/ Sodium (Chloride) 105 mls @ 105 mls/hr IVPB DAILY [facility] Last Admin: 06/25/18 11:09 Dose: 105 mls/hr Sodium Chloride (Sodium Chloride 0.9%) 1,000 mls @ 100 mls/hr IV .Q10H [facility] Stop: 06/26/18 07:44 Last Admin: 06/25/18 10:16 Dose: 100 mls/hr Metoclopramide HCl (Reglan) 10 mg IVP Q6H PRN PRN Reason: Nausea/Vomiting Metoprolol Succinate (Toprol Xl) 50 mg PO DAILY [facility] Last Admin: 06/25/18 10:35 Dose: Not Given Ondansetron HCl (Zofran Inj) 4 mg IVP Q6 PRN PRN Reason: Nausea/Vomiting Last Admin: 06/24/18 19:24 Dose: 4 mg Ticagrelor (Brilinta) 90 mg PO DAILY [facility] Last Admin: 06/25/18 10:23 Dose: 90 mg Tramadol HCl (Ultram) 50 mg PO Q4 PRN PRN Reason: Pain, severe (8-10) - Labs Labs: 06/25/18 05:55 06/25/18 05:55 Attending/Attestation - Attestation I have personally seen and examined this patient.: Yes I have fully participated in the care of the patient.: Yes I have reviewed all pertinent clinical information, including history, physical exam and plan: Yes Notes (Text): Left Hip Primary Osteoarthritis s/p Left THR - pt doing well post op , pain controlled - PT/OT - Pain mgt - DVT proph - Incentive spirometry - received 3 doses of Cefazolin Orthostatic Hypotension due to Hypovolemia - IVF bolus and mainetenace hydration Dr Groves rec PRBC transfusion History of CAD with Stent Placement - pt on Brilinta, ASSA and statin Hold Metoprolol today as rec by Cardiology Acute Blood Loss anemia, post op - transfuse PRBC - pt now agrees to transfusion after he spoke with Dr Bauer - KOMAL [place] Urinary Retention likely due to anesthesia and Opiate - inserted urinary catheter - obtained 800 ml - will d/c and not keep catheter
--- NOTE | 2018-06-25 11:20 | OP ---
PROCEDURE DATE: 06/24/2018 PREOPERATIVE DIAGNOSES: 1. Severe left hip osteoarthritis with severe osteophytosis. 2. Contracture of the iliopsoas tendon. 3. Loose body and severe of the hip joint. POSTOPERATIVE DIAGNOSES: 1. Severe left hip osteoarthritis/degenerative joint disease. 2. Contracture, iliopsoas tendon. 3. Complex deformity of the femoral neck, requiring an intraoperative and preoperative extensive planning, minor leg length inequality. OPERATIONS PERFORMED: 1. Left total hip replacement arthroplasty, anterior approach. 2. Femoral neck osteotomy with a separate modifier secondary to the complexity of the deformity. The osteoarthritic deformity and the complexity of preoperative and intraoperative planning to ensure leg length equality. 3. Arthrotomy and excision of loose body and synovectomy. 4. Release of iliopsoas tendon. 5. Autograft bone grafting to the acetabulum and the femur. 6. Computer navigation with the Finisar technology. SPECIMENS REMOVED: Femoral head, synovium, and loose body. SURGEON: Herb Bauer MD CRM MARKETING ANALYST: EMA Browne SECOND TEST CAR DRIVER: Taylor Douglass PA-C ESTIMATED BLOOD LOSS: 135 mL. No blood products given. DRAINS: No drains. POSTOPERATIVE CONDITION: Stable. TIME OF SURGERY: Incision time 09:10. Time in the room 08:10, end of surgery at approximately 12:14. 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 The patient has treated this conservatively over the years with anti-inflammatory medication, weight loss, physical therapy, etc. The patient can no longer withstand the discomfort, has a severe interruption in his sleeping tolerance and his walking tolerance and he can no longer stand the discomfort. Pros, cons, risks and benefits of the replacement arthroplasty were discussed. Possibility of mechanical failure, infection, leg length inequality, recurrent dislocation, secondary or tertiary surgery was discussed. OPERATIVE PROCEDURE: After having obtained informed consent, after having identified side, site and procedure and a critical pause/time-out, after the satisfactory induction of the anesthetic, the patient was identified as Iain Finch in the supine position, the left lower extremity was placed in the [facility] traction positioner. All bony prominences were well padded and the computer set up for computer navigation was established. This having been accomplished, after sterilely prepping and draping under the surgeon's direction, the fluoroscope was positioned. Video images were generated and therapeutic decisions were made therefrom. There was found to be evidence of leg-length inequality. There was found to be evidence of severe osteoarthritis of the left hip with severe osteophytosis and evidence of loose body. This having been accomplished, the fluoroscope was positioned; and after sterilely prepping and draping, the iliac crest is marked carefully and the skin incision is described approximately 3 cm posterior to the anterior-superior iliac spine and 1 cm distally at approximately four fingerbreadths distal to that, superficial to the tensor fascia femoris muscle. After having identified side, site and procedure and a critical pause/time-out, after the satisfactory induction of spinal and general anesthesia by Dr. Flex Tristan, a 4-inch incision was described superficial to the tensor fascia femoris. The skin incision was carried down through the skin and subcutaneous tissue. The tensor fascia femoris was divided. The Allis clamp was placed on the anterior aspect of the tensor; and this having been accomplished, the tensor fascia femoris was taken down from the investing fascia. The Medacta-modified Ginger-Marvin retractor was placed at the posterior aspect of the rectus femoris. Hemostasis was controlled with the Aquamantys and the posterior aspect of the rectus femoris was mobilized. At this point in time, the Medacta retractor was placed horizontally deeply superficial to the hip joint. There was a thin fascial layer, which was identified. The thin fascial layer was divided. At this point in time, the anterior branch of the lateral femoral circumflex vessels was identified and controlled with the Aquamantys. Complete control and hemostasis was obtained. This having been accomplished, there was several fat areas superficial to the capsule, which were removed. At this point in time, with the lower extremity in external rotation, an incision was described releasing the rectus femoris and extending medially to the area of the intertrochanteric line. The capsule was elevated with electrocautery. The intertrochanteric tubercle was identified. The capsule was elevated. The capsule was released superiorly as well. This having been accomplished, the capsule was tagged. It should be noted that there is severe osteophytosis, both bordering the acetabulum and in the area of the femoral head. Using a 0.5 inch curved osteotome, the border of the acetabulum was removed. The border osteophytes were carefully removed using the 0.5 inch curved osteotome and the rongeur. This having been accomplished, with the capsule having been elevated, hemostasis was controlled using the Aquamantys. Medacta Hohmann retractor was placed in the area of the saddle. That area was carefully exposed and hemostasis controlled with the Aquamantys. At this point in time, great care having been taken to plan the femoral neck osteotomy because of the nature of the deformity and the leg length inequality. Using the oscillating saw, intraoperative confirmation was accomplished as well using the image intensification views. At this point in time, the femoral neck osteotomy was begun in a perpendicular direction. The anterior cortex was broken. The hand was brought laterally to avoid injury to the greater trochanter. The femoral neck osteotomy was accomplished because of the severe capsular contracture and the osteophytes. A napkin ring was removed from the femoral head. The napkin ring having been removed, further release of the capsule was accomplished. Using the oscillating saw, the head was bivalved as well to remove that fragment to allow further mobilization of the head. At this point in time, with further mobilization and capsular release, the corkscrew was placed and the femoral head was removed and found to be measured at 54 mm. At this point in time, there was aggressive contracture, which was evident as well as synovitis. There was a loose body of approximately 1 cm in diameter, which was removed. Arthrotomy of the hip thus having been accomplished, synovectomy having been accomplished, loose body having been removed, attention was now turned to the acetabulum. 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 This having been accomplished, sequential reaming was carried, beginning with 48 mm through 56 mm. At this point in time, computer navigation commences. The anterior superior iliac spine was identified, and one fingerbreadth posterior to the ASIS, using #11 blade, two incisions were accomplished according to template and the supporting screws were introduced into the anterior superior iliac spine. This having been accomplished, the frontal plane of the pelvis was registered with computer navigation using the registration tool. The right anterior superior iliac spine that was registered on the left was registered for the anterior frontal plane. The camera having been adjusted, this having been accomplished, the position of the computer navigation was excellent. At this point in time, further reaming was carried out for 48 mm through 56 mm in approximately 40 degrees of abduction and 20 degrees of anteversion. This having been accomplished, sequential reaming was carried out through the 56 mm, and at this point in time, with the straight reamer, the registration device was placed on the reamer and the inclination of the acetabular component was 40 degrees of abduction and 20 degrees of anteversion. The reamings are denuded of articular cartilage and saved for later bone grafting. This having been accomplished, use of the bur was accomplished as well to help with the sclerotic bone in the posterior aspect of the acetabulum. The trial was placed. The trial was introduced to approximately 40 degrees of abduction and 20 degrees of anteversion, found to be excellent. At this point in time, the 56 mm Medacta cup was introduced. Autograft bone grafting was introduced to the acetabulum for the acetabular defects. The shell for the dual mobility construct was impacted, verified at 40 degrees of abduction and approximately 20 degrees of anteversion. The position was found to be excellent. At this point in time, external rotation of the femur was carried out. There were found to be capsular contractures and significant contracture of the iliopsoas musculature. The pubofemoral ligament was released using the bone hook. Further external rotation of the lower extremity was accomplished prior to hyperextension of the femur to deliver it for preparation of the femoral component. Having the contracture of the iliopsoas muscle and the iliopsoas muscle tendon complex, the iliopsoas tendon insertion at the lesser trochanter was released, and at this point in time, the bridge of bone between the neck and the trochanter was removed using the boxed chisel. This having been accomplished, the bur was used to enter the canal. The rasp was placed and was found to be well contained. At this point in time, broaching of the femur was accomplished through to a #7 femoral component. The 7 was a tight fit. This having been accomplished, the +3.5, 56 mm polyethylene outer bearing was affixed for trialing. The construct was reduced and found to be stable, but that was found to be short. Verification was offered on image intensification views. This having been accomplished, the +7 mm trial was accomplished with the 56 mm polyethylene outer bearing. The construct was reduced and found to be stable with excellent position of the leg lengths. This having been accomplished, the femur was prepared with the Marilu retractors medially and posteriorly. The AMIS #7 femoral component collarless was introduced in the appropriate anteversion. This having been accomplished, the proximal femur is bone grafted with autograft, again denuded of articular cartilage from the acetabular reamings. The position was found to be excellent and +7 ceramic component was used with the 56 mm outer bearing. The construct was reduced and found to be stable in all planes. There was negative push-pull, negative instability to internal or external rotation. Further autograft bone grafting was accomplished after thorough irrigation. Thorough irrigation of the wound was accomplished. Hemostasis was controlled with the Aquamantys. It was controlled with thrombin and Gelfoam and it was also controlled with the hemostatic agent FloSeal. This having been accomplished, the hip was found to be stable in all planes. The leg lengths were found to be excellent. This having been accomplished, hemostasis having been accomplished with the Aquamantys, closures were in layers. The capsular flap was reintroduced into the joint, the capsular flap which had been elevated to protect the joint anteriorly. Closure of the tensor fascia femoris fascia was with 0 Quill. The wound was thoroughly irrigated. Hemostasis was controlled. Further closure was with interrupted Vicryl and 2-0 Quill plastic closure. The initial incisions for the computer navigation are removed. It should be noted that the computer navigation offered excellent position of the cup at 40 degrees of abduction and 20 degrees of anteversion. Closure of the incisions on the iliac crest was with interrupted Vicryl and Dermabond. Compression dressing was applied. Postoperative x-rays revealed excellent position of the construct. The patient is stable in recovery. Blood loss was approximately 135 mL. Herb Bauer MD
--- NOTE | 2018-06-25 12:55 | CP.PCM.PN ---
Subjective - Date & Time of Evaluation Date of Evaluation: 06/25/18 Time of Evaluation: 07:30 - Subjective Subjective: Patient states pain is controlled, it is starting to get a little bit worse. Denies CP/SOB/dizziness/numbness/tingling. Objective - Vital Signs/Intake and Output Vital Signs (last 24 hours): Temp Pulse Resp BP Pulse Ox 98.7 F 95 H 20 96/58 L 96 06/25/18 08:52 06/25/18 10:35 06/25/18 08:00 06/25/18 10:35 06/25/18 08:40 - Medications Medications: Current Medications Acetaminophen (Tylenol 325mg Tab) 650 mg PO Q6H [facility] Last Admin: 06/24/18 18:20 Dose: 650 mg Aspirin (Ecotrin) 81 mg PO DAILY [facility] Last Admin: 06/25/18 10:34 Dose: Not Given Atorvastatin Calcium (Lipitor) 20 mg PO DAILY [facility] Last Admin: 06/25/18 10:24 Dose: 20 mg Bisacodyl (Dulcolax) 10 mg PO HS PRN PRN Reason: Constipation Diphenhydramine HCl (Benadryl) 50 mg IVP Q6 PRN PRN Reason: Itching / Pruritus Docusate Sodium (Colace) 100 mg PO BID [facility] Last Admin: 06/25/18 10:23 Dose: 100 mg Enoxaparin Sodium (Lovenox) 40 mg SC DAILY [facility]; Protocol Last Admin: 06/25/18 10:24 Dose: 40 mg Fenofibrate (Tricor) 145 mg PO DAILY [facility] Last Admin: 06/25/18 10:36 Dose: 145 mg Hydromorphone HCl (Dilaudid) 1 mg IVP Q4 PRN PRN Reason: Pain, severe (8-10) Iron Sucrose 100 mg/ Sodium (Chloride) 105 mls @ 105 mls/hr IVPB DAILY [facility] Last Admin: 06/25/18 11:09 Dose: 105 mls/hr Sodium Chloride (Sodium Chloride 0.9%) 1,000 mls @ 100 mls/hr IV .Q10H [facility] Stop: 06/26/18 07:44 Last Admin: 06/25/18 10:16 Dose: 100 mls/hr Metoclopramide HCl (Reglan) 10 mg IVP Q6H PRN PRN Reason: Nausea/Vomiting Metoprolol Succinate (Toprol Xl) 50 mg PO DAILY [facility] Last Admin: 06/25/18 10:35 Dose: Not Given Ondansetron HCl (Zofran Inj) 4 mg IVP Q6 PRN PRN Reason: Nausea/Vomiting Last Admin: 06/24/18 19:24 Dose: 4 mg Oxycodone HCl (Oxycodone Immediate Release Tab) 10 mg PO Q4H PRN PRN Reason: Pain, moderate (4-7) Ticagrelor (Brilinta) 90 mg PO DAILY [facility] Last Admin: 06/25/18 10:23 Dose: 90 mg - Labs Labs: 06/25/18 05:55 06/25/18 05:55 - Extremities Exam Additional comments: LLE: thigh mild swelling, soft, +ROM ankle/toes, sensation intact +Dp/PT pulses calves soft NT neg homans Assessment and Plan (1) Primary osteoarthritis of left hip Assessment & Plan: POD#1 s/p Left THR anterior PT/OT vte proph d/c planning d/w Dr. Bauer, agrees with above called by Dr. Du and notified of [employer] due to presyncopal episode with PT. Recommend transfusion PRBC due to drop in h/h as well as cardiac history would keep hemoglobin around 9. Responded to IVF initially. Patient refusing transfusion. Dr. Du to repeat h/h and discuss with patient again. Walker placed for retention, last bladder scan over 400. Dr. Bauer notified of above. Status: Acute (2) CAD (coronary artery disease) Status: Acute (3) HTN (hypertension) Status: Acute (4) Hypercholesteremia Status: Acute
--- NOTE | 2018-06-25 15:34 | CP.PCM.PCO ---
Physician Communication Note - Physician Communication Note Physician Communication Note: pt does not want oxycodone, tylenol and tramadol ordered PRN
--- NOTE | 2018-06-25 20:36 | CARD ---
APPROVED REPORT Date of service: 06/25/2018 EKG Measurement Heart [id number] <Conclusion> Normal sinus rhythm Normal Electrocardiogram
[2018-06-26 07:36] LABS: HEMOGLOBIN 9.2 g/dL (12.0-18.0); MEAN CELL VOLUME 94.5 fl (80.0-94.0); MEAN CORPUSCULAR HGB CONC 33.9 g/dL (33.0-37.0); RBC 2.88 Mil/uL (4.40-5.90); RED CELL DISTRIBUTION WIDTH 14.2 % (11.5-14.5)
[2018-06-26 07:55] LABS: BLOOD UREA NITROGEN 20 mg/dl (9-20); CALCIUM 7.8 mg/dL (8.4-10.2); GFR NON-AFRICAN AMERICAN 55
[2018-06-26] MEDS: Enoxaparin 40 mg Syringe SC SCH (08:58)
--- NOTE | 2018-06-26 09:44 | CP.PCM.PN ---
Subjective - Date & Time of Evaluation Date of Evaluation: 06/26/18 Time of Evaluation: 09:15 - Subjective Subjective: S-ptwithout complaints;feeling much better Objective - Vital Signs/Intake and Output Vital Signs (last 24 hours): Temp Pulse Resp BP Pulse Ox 99.9 F H 91 H 20 128/70 97 06/26/18 08:07 06/26/18 08:07 06/26/18 08:07 06/26/18 08:07 06/26/18 08:07 Intake and Output: 06/26/18 06/26/18 06:59 18:59 Intake Total 375 Balance 375 - Medications Medications: Current Medications Acetaminophen (Tylenol 325mg Tab) 975 mg PO Q6 PRN PRN Reason: Pain, moderate (4-7) Last Admin: 06/26/18 06:39 Dose: 975 mg Aspirin (Ecotrin) 81 mg PO DAILY [facility] Last Admin: 06/26/18 08:57 Dose: 81 mg Atorvastatin Calcium (Lipitor) 20 mg PO DAILY [facility] Last Admin: 06/26/18 08:58 Dose: 20 mg Bisacodyl (Dulcolax) 10 mg PO HS PRN PRN Reason: Constipation Docusate Sodium (Colace) 100 mg PO BID [facility] Last Admin: 06/26/18 08:56 Dose: 100 mg Enoxaparin Sodium (Lovenox) 40 mg SC DAILY [facility]; Protocol Last Admin: 06/26/18 08:58 Dose: 40 mg Fenofibrate (Tricor) 145 mg PO DAILY [facility] Last Admin: 06/26/18 08:57 Dose: 145 mg Hydromorphone HCl (Dilaudid) 1 mg IVP Q4 PRN PRN Reason: Pain, severe (8-10) Iron Sucrose 100 mg/ Sodium (Chloride) 105 mls @ 105 mls/hr IVPB DAILY [facility] Last Admin: 06/25/18 11:09 Dose: 105 mls/hr Metoclopramide HCl (Reglan) 10 mg IVP Q6H PRN PRN Reason: Nausea/Vomiting Metoprolol Succinate (Toprol Xl) 50 mg PO DAILY [facility] Last Admin: 06/25/18 10:35 Dose: Not Given Ondansetron HCl (Zofran Inj) 4 mg IVP Q6 PRN PRN Reason: Nausea/Vomiting Last Admin: 06/24/18 19:24 Dose: 4 mg Ticagrelor (Brilinta) 90 mg PO DAILY [facility] Last Admin: 06/26/18 08:56 Dose: 90 mg Tramadol HCl (Ultram) 50 mg PO Q4 PRN PRN Reason: Pain, severe (8-10) - Labs Labs: 06/26/18 05:30 06/26/18 05:30 - Skin Additional comments: Objective systemic wnl Musculoskeletal styance/gait- defrrerd L hip wound dry and intact N/V intact no gross deficits orthopedically stable no calf tenderness' thiogh soft no evidence for activ epost op bleeding Assessment and Plan - Assessment and Plan (Free Text) Assessment: A- L THR excelelnt compopnment position pt resp;ded well to transufucion prbc/s P- physio transfer to TCU
--- NOTE | 2018-06-26 10:58 | CP.PCM.PN ---
Objective - Vital Signs/Intake and Output Vital Signs (last 24 hours): Temp Pulse Resp BP Pulse Ox 99.9 F H 91 H 20 128/70 97 06/26/18 08:07 06/26/18 08:07 06/26/18 08:07 06/26/18 08:07 06/26/18 08:07 Intake and Output: 06/26/18 06/26/18 06:59 18:59 Intake Total 375 Balance 375 - Medications Medications: Current Medications Acetaminophen (Tylenol 325mg Tab) 975 mg PO Q6 PRN PRN Reason: Pain, moderate (4-7) Last Admin: 06/26/18 06:39 Dose: 975 mg Aspirin (Ecotrin) 81 mg PO DAILY [facility] Last Admin: 06/26/18 08:57 Dose: 81 mg Atorvastatin Calcium (Lipitor) 20 mg PO DAILY [facility] Last Admin: 06/26/18 08:58 Dose: 20 mg Bisacodyl (Dulcolax) 10 mg PO HS PRN PRN Reason: Constipation Docusate Sodium (Colace) 100 mg PO BID [facility] Last Admin: 06/26/18 08:56 Dose: 100 mg Enoxaparin Sodium (Lovenox) 40 mg SC DAILY [facility]; Protocol Last Admin: 06/26/18 08:58 Dose: 40 mg Fenofibrate (Tricor) 145 mg PO DAILY [facility] Last Admin: 06/26/18 08:57 Dose: 145 mg Hydromorphone HCl (Dilaudid) 1 mg IVP Q4 PRN PRN Reason: Pain, severe (8-10) Iron Sucrose 100 mg/ Sodium (Chloride) 105 mls @ 105 mls/hr IVPB DAILY [facility] Last Admin: 06/25/18 11:09 Dose: 105 mls/hr Metoclopramide HCl (Reglan) 10 mg IVP Q6H PRN PRN Reason: Nausea/Vomiting Metoprolol Succinate (Toprol Xl) 50 mg PO DAILY [facility] Last Admin: 06/25/18 10:35 Dose: Not Given Ondansetron HCl (Zofran Inj) 4 mg IVP Q6 PRN PRN Reason: Nausea/Vomiting Last Admin: 06/24/18 19:24 Dose: 4 mg Ticagrelor (Brilinta) 90 mg PO DAILY [facility] Last Admin: 06/26/18 08:56 Dose: 90 mg Tramadol HCl (Ultram) 50 mg PO Q4 PRN PRN Reason: Pain, severe (8-10) - Labs Labs: 06/26/18 05:30 06/26/18 05:30
--- NOTE | 2018-06-26 12:24 | CP.PCM.PN ---
Subjective - Date & Time of Evaluation Date of Evaluation: 06/26/18 Time of Evaluation: 10:00 - Subjective Subjective: some slight lightheadedness when he stood up with PT today but feels very much better low grade fever yesterday Pain controlled- did not even need Opiates overnight - just Tylenol denies CP no SOB no abd pain no urinary retention + Constipation Objective - Vital Signs/Intake and Output Vital Signs (last 24 hours): Temp Pulse Resp BP Pulse Ox 98.8 F 89 20 114/63 98 06/26/18 11:52 06/26/18 11:52 06/26/18 11:52 06/26/18 11:52 06/26/18 11:52 Intake and Output: 06/26/18 06/26/18 06:59 18:59 Intake Total 375 Balance 375 - Medications Medications: Current Medications Acetaminophen (Tylenol 325mg Tab) 975 mg PO Q6 PRN PRN Reason: Pain, moderate (4-7) Last Admin: 06/26/18 06:39 Dose: 975 mg Aspirin (Ecotrin) 81 mg PO DAILY [facility] Last Admin: 06/26/18 08:57 Dose: 81 mg Atorvastatin Calcium (Lipitor) 20 mg PO DAILY [facility] Last Admin: 06/26/18 08:58 Dose: 20 mg Bisacodyl (Dulcolax) 10 mg PO HS PRN PRN Reason: Constipation Docusate Sodium (Colace) 100 mg PO BID [facility] Last Admin: 06/26/18 08:56 Dose: 100 mg Enoxaparin Sodium (Lovenox) 40 mg SC DAILY [facility]; Protocol Last Admin: 06/26/18 08:58 Dose: 40 mg Fenofibrate (Tricor) 145 mg PO DAILY [facility] Last Admin: 06/26/18 08:57 Dose: 145 mg Hydromorphone HCl (Dilaudid) 1 mg IVP Q4 PRN PRN Reason: Pain, severe (8-10) Iron Sucrose 100 mg/ Sodium (Chloride) 105 mls @ 105 mls/hr IVPB DAILY [facility] Last Admin: 06/26/18 11:45 Dose: 105 mls/hr Metoclopramide HCl (Reglan) 10 mg IVP Q6H PRN PRN Reason: Nausea/Vomiting Metoprolol Succinate (Toprol Xl) 50 mg PO DAILY [facility] Last Admin: 06/25/18 10:35 Dose: Not Given Ondansetron HCl (Zofran Inj) 4 mg IVP Q6 PRN PRN Reason: Nausea/Vomiting Last Admin: 06/24/18 19:24 Dose: 4 mg Ticagrelor (Brilinta) 90 mg PO DAILY [facility] Last Admin: 06/26/18 08:56 Dose: 90 mg Tramadol HCl (Ultram) 50 mg PO Q4 PRN PRN Reason: Pain, severe (8-10) - Labs Labs: 06/26/18 05:30 06/26/18 05:30 - Constitutional Appears: Non-toxic, No Acute Distress - Head Exam Head Exam: ATRAUMATIC, NORMAL INSPECTION, NORMOCEPHALIC - Eye Exam Eye Exam: EOMI, Normal appearance, PERRL Pupil Exam: NORMAL ACCOMODATION - ENT Exam ENT Exam: Mucous Membranes Moist, Normal External Ear Exam - Neck Exam Neck Exam: Full ROM. absent: Meningismus - Respiratory Exam Respiratory Exam: NORMAL BREATHING PATTERN. absent: Rales, Rhonchi, Wheezes, Respiratory Distress - Cardiovascular Exam Cardiovascular Exam: REGULAR RHYTHM, +S1, +S2 - GI/Abdominal Exam GI & Abdominal Exam: Soft, Normal Bowel Sounds. absent: Tenderness - Extremities Exam Extremities Exam: Normal Capillary Refill. absent: Calf Tenderness Additional comments: Left hip with dressing - Back Exam Back Exam: Full ROM. absent: CVA tenderness (L), CVA tenderness (R) - Neurological Exam Neurological Exam: Alert, Awake, CN II-XII Intact, Oriented x3 Neuro motor strength exam: Left Upper Extremity: 5, Right Upper Extremity: 5, Left Lower Extremity: 5, Right Lower Extremity: 5 - Psychiatric Exam Psychiatric exam: Normal Affect, Normal Mood - Skin Skin Exam: Dry, Normal Color, Warm Assessment and Plan - Assessment and Plan (Free Text) Plan: Left Hip Primary Osteoarthritis s/p Left THR - pt doing well post op , pain controlled - PT/OT consulted - Pain mgt - DVT proph - Incentive spirometry - received 3 doses of Cefazolin Orthostatic Hypotension due to Hypovolemia, resolved - IVF bolus and maintenace IVF hydration History of CAD with Stent Placement - pt on Brilinta, ASA and statin Hold Metoprolol as rec by Cardiology- restart Thursday Acute Blood Loss anemia, post op - transfused 2 units PRBC - IV Venofer Urinary Retention likely due to anesthesia and Opiate, resolved -straight cath done once DVT proph - Lovenox SQ Constipation - Dulcolax 10 mg PO - Colace
--- NOTE | 2018-06-26 12:58 | CP.PCM.PN ---
Subjective - Date & Time of Evaluation Date of Evaluation: 06/26/18 Time of Evaluation: 11:30 - Subjective Subjective: NO CHEST PAIN OR SOB PATIENT STATES HE AGREED TO A BLOOD TRANSFUSION AND RECEIVED 2U RBCS HIS BP FELL TO SYSTOLIC 99 WHEN HE STOOD UP AND WAS DIZZY BUT HE FELT BETTER ONCE HIS GOT BACK IN BED AND DOES IN GENERAL FEEL BETTER AND STRONGER Objective - Vital Signs/Intake and Output Vital Signs (last 24 hours): Temp Pulse Resp BP Pulse Ox 98.8 F 89 20 114/63 98 06/26/18 11:52 06/26/18 11:52 06/26/18 11:52 06/26/18 11:52 06/26/18 11:52 Intake and Output: 06/26/18 06/26/18 06:59 18:59 Intake Total 375 Balance 375 - Medications Medications: Current Medications Acetaminophen (Tylenol 325mg Tab) 975 mg PO Q6 PRN PRN Reason: Pain, moderate (4-7) Last Admin: 06/26/18 06:39 Dose: 975 mg Aspirin (Ecotrin) 81 mg PO DAILY [facility] Last Admin: 06/26/18 08:57 Dose: 81 mg Atorvastatin Calcium (Lipitor) 20 mg PO DAILY [facility] Last Admin: 06/26/18 08:58 Dose: 20 mg Bisacodyl (Dulcolax) 10 mg PO HS PRN PRN Reason: Constipation Docusate Sodium (Colace) 100 mg PO BID [facility] Last Admin: 06/26/18 08:56 Dose: 100 mg Enoxaparin Sodium (Lovenox) 40 mg SC DAILY [facility]; Protocol Last Admin: 06/26/18 08:58 Dose: 40 mg Fenofibrate (Tricor) 145 mg PO DAILY [facility] Last Admin: 06/26/18 08:57 Dose: 145 mg Hydromorphone HCl (Dilaudid) 1 mg IVP Q4 PRN PRN Reason: Pain, severe (8-10) Iron Sucrose 100 mg/ Sodium (Chloride) 105 mls @ 105 mls/hr IVPB DAILY [facility] Last Admin: 06/26/18 11:45 Dose: 105 mls/hr Metoclopramide HCl (Reglan) 10 mg IVP Q6H PRN PRN Reason: Nausea/Vomiting Metoprolol Succinate (Toprol Xl) 50 mg PO DAILY [facility] Last Admin: 06/25/18 10:35 Dose: Not Given Ondansetron HCl (Zofran Inj) 4 mg IVP Q6 PRN PRN Reason: Nausea/Vomiting Last Admin: 06/24/18 19:24 Dose: 4 mg Ticagrelor (Brilinta) 90 mg PO DAILY [facility] Last Admin: 06/26/18 08:56 Dose: 90 mg Tramadol HCl (Ultram) 50 mg PO Q4 PRN PRN Reason: Pain, severe (8-10) - Labs Labs: 06/26/18 05:30 06/26/18 05:30 - Respiratory Exam Respiratory Exam: Clear to Ausculation Bilateral - Cardiovascular Exam Cardiovascular Exam: REGULAR RHYTHM, +S1, +S2 - Extremities Exam Additional comments: NO LE EDEMA - Additional Findings Additional findings: H/H 03/04 Assessment and Plan - Assessment and Plan (Free Text) Assessment: S/P LEFT THR WITH ORTHOSTATIC HYPOTENSION FROM COMBINATION OF ANEMIA, ANESTHESIA AND PAIN CAD HISTORY-STABLE HYPERLIPIDEMIA Plan: CONTINUE ASPIRIN, BRILINTA, LOVENOX, ATORVASTATIN AND FENOFIBRATE WOULD HOLD METOPROLOL UNTIL ORTHOSTATIC HYPOTENSION RESOLVES-RECOMMEND WAITING UNTIL WE SEE BP RESPONSE TO THERAPY ON THURSDAY
[2018-06-26] MEDS ORDERED: Bisacodyl 5mg EC Tab PO ONE (13:17)
[2018-06-26] MEDS ORDERED: Chlorhexidine Gluconate 1 APPL/PKT TP ONE (18:08)
[2018-06-27 08:14] LABS: BLOOD UREA NITROGEN 14 mg/dl (9-20); GFR NON-AFRICAN AMERICAN > 60
[2018-06-27 08:15] LABS: CALCIUM 8.2 mg/dL (8.4-10.2)
[2018-06-27] MEDS: Enoxaparin 40 mg Syringe SC SCH (09:22)
--- NOTE | 2018-06-27 10:33 | CP.PCM.PN ---
Subjective - Date & Time of Evaluation Date of Evaluation: 06/27/18 Time of Evaluation: 09:45 - Subjective Subjective: Pt doing well post op minimal pain controlled with just Tylenol had BM today after Dulcolax supp voiding freely no CP no SOB no abd pain no dizziness no GARCIA Objective - Vital Signs/Intake and Output Vital Signs (last 24 hours): Temp Pulse Resp BP Pulse Ox 98.4 F 94 H 19 110/63 96 06/27/18 09:41 06/27/18 09:41 06/27/18 09:41 06/27/18 09:41 06/27/18 09:41 - Medications Medications: Current Medications Acetaminophen (Tylenol 325mg Tab) 975 mg PO Q6 PRN PRN Reason: Pain, moderate (4-7) Last Admin: 06/26/18 06:39 Dose: 975 mg Aspirin (Ecotrin) 81 mg PO DAILY [facility] Last Admin: 06/27/18 09:22 Dose: 81 mg Atorvastatin Calcium (Lipitor) 20 mg PO DAILY [facility] Last Admin: 06/27/18 09:22 Dose: 20 mg Bisacodyl (Dulcolax) 10 mg PO HS PRN PRN Reason: Constipation Docusate Sodium (Colace) 100 mg PO BID [facility] Last Admin: 06/27/18 09:20 Dose: 100 mg Enoxaparin Sodium (Lovenox) 40 mg SC DAILY [facility]; Protocol Last Admin: 06/27/18 09:22 Dose: 40 mg Fenofibrate (Tricor) 145 mg PO DAILY [facility] Last Admin: 06/27/18 09:21 Dose: 145 mg Hydromorphone HCl (Dilaudid) 1 mg IVP Q4 PRN PRN Reason: Pain, severe (8-10) Iron Sucrose 100 mg/ Sodium (Chloride) 105 mls @ 105 mls/hr IVPB DAILY [facility] Last Admin: 06/27/18 09:21 Dose: 105 mls/hr Metoclopramide HCl (Reglan) 10 mg IVP Q6H PRN PRN Reason: Nausea/Vomiting Metoprolol Succinate (Toprol Xl) 50 mg PO DAILY [facility] Last Admin: 06/25/18 10:35 Dose: Not Given Ondansetron HCl (Zofran Inj) 4 mg IVP Q6 PRN PRN Reason: Nausea/Vomiting Last Admin: 06/24/18 19:24 Dose: 4 mg Ticagrelor (Brilinta) 90 mg PO DAILY [facility] Last Admin: 06/27/18 09:22 Dose: 90 mg Tramadol HCl (Ultram) 50 mg PO Q4 PRN PRN Reason: Pain, severe (8-10) - Labs Labs: 06/26/18 05:30 06/27/18 05:35 - Constitutional Appears: Non-toxic, No Acute Distress - Head Exam Head Exam: ATRAUMATIC, NORMAL INSPECTION, NORMOCEPHALIC - Eye Exam Eye Exam: EOMI, Normal appearance, PERRL Pupil Exam: NORMAL ACCOMODATION - ENT Exam ENT Exam: Mucous Membranes Moist, Normal External Ear Exam - Neck Exam Neck Exam: Full ROM. absent: Meningismus - Respiratory Exam Respiratory Exam: NORMAL BREATHING PATTERN. absent: Rales, Rhonchi, Wheezes, Respiratory Distress - Cardiovascular Exam Cardiovascular Exam: REGULAR RHYTHM, +S1, +S2 - GI/Abdominal Exam GI & Abdominal Exam: Soft, Normal Bowel Sounds. absent: Tenderness - Extremities Exam Extremities Exam: Normal Capillary Refill. absent: Calf Tenderness Additional comments: Left hip with dressing - Back Exam Back Exam: Full ROM. absent: CVA tenderness (L), CVA tenderness (R) - Neurological Exam Neurological Exam: Alert, Awake, CN II-XII Intact, Oriented x3 Neuro motor strength exam: Left Upper Extremity: 5, Right Upper Extremity: 5, Left Lower Extremity: 5, Right Lower Extremity: 5 - Psychiatric Exam Psychiatric exam: Normal Affect, Normal Mood - Skin Skin Exam: Dry, Normal Color, Warm Assessment and Plan - Assessment and Plan (Free Text) Plan: Left Hip Primary Osteoarthritis s/p Left THR - pt doing well post op , pain controlled with just Tylenol prn - PT/OT eval - Pain mgt - DVT proph - Incentive spirometry - received 3 doses of Cefazolin ( Surg Proph) Orthostatic Hypotension due to Hypovolemia, resolved - IVF bolus and maintenace IVF hydration History of CAD with Stent Placement - pt on Brilinta, ASA and statin -Hold Metoprolol as rec by Cardiology- restart Thursday Acute Blood Loss anemia, post op - transfused 2 units PRBC - IV Venofer Urinary Retention likely due to anesthesia and Opiate, resolved -straight cath done once DVT proph - Lovenox SQ Constipation - Dulcolax 10 mg PO - Colace
[2018-06-28] MEDS: Enoxaparin 40 mg Syringe SC SCH (08:52)
[2018-06-28 08:58] LABS: HEMOGLOBIN 9.1 g/dL (12.0-18.0); MEAN CELL VOLUME 94.9 fl (80.0-94.0); MEAN CORPUSCULAR HEMOGLOBIN 32.4 pg (27.0-31.0); MEAN CORPUSCULAR HGB CONC 34.1 g/dL (33.0-37.0); RBC 2.82 Mil/uL (4.40-5.90); RED CELL DISTRIBUTION WIDTH 14.2 % (11.5-14.5); WHITE BLOOD COUNT 8.7 K/uL (4.8-10.8)
[2018-06-28 09:25] LABS: BLOOD UREA NITROGEN 17 mg/dl (9-20); CALCIUM 8.6 mg/dL (8.4-10.2); GFR NON-AFRICAN AMERICAN > 60
--- NOTE | 2018-06-28 09:45 | CP.PCM.PN ---
Subjective - Date & Time of Evaluation Date of Evaluation: 06/28/18 Time of Evaluation: 07:30 - Subjective Subjective: Patient seen and examined at bedside comfortable. Pain is well controlled with PO tylenol. No acute events over the weekend. Tolerated transfusion well. Denies CP/SOB/dizziness/lightheadedness/N/fever. Objective - Vital Signs/Intake and Output Vital Signs (last 24 hours): Temp Pulse Resp BP Pulse Ox 98.0 F 79 18 124/68 97 06/28/18 08:34 06/28/18 08:34 06/28/18 08:34 06/28/18 08:34 06/28/18 08:34 - Medications Medications: Current Medications Acetaminophen (Tylenol 325mg Tab) 975 mg PO Q6 PRN PRN Reason: Pain, moderate (4-7) Last Admin: 06/26/18 06:39 Dose: 975 mg Aspirin (Ecotrin) 81 mg PO DAILY [facility] Last Admin: 06/28/18 08:53 Dose: 81 mg Atorvastatin Calcium (Lipitor) 20 mg PO DAILY [facility] Last Admin: 06/28/18 09:06 Dose: Not Given Bisacodyl (Dulcolax) 10 mg PO HS PRN PRN Reason: Constipation Last Admin: 06/28/18 08:54 Dose: 10 mg Docusate Sodium (Colace) 100 mg PO BID [facility] Last Admin: 06/28/18 08:53 Dose: 100 mg Enoxaparin Sodium (Lovenox) 40 mg SC DAILY [facility]; Protocol Last Admin: 06/28/18 08:52 Dose: 40 mg Fenofibrate (Tricor) 145 mg PO DAILY [facility] Last Admin: 06/28/18 08:52 Dose: 145 mg Iron Sucrose 100 mg/ Sodium (Chloride) 105 mls @ 105 mls/hr IVPB DAILY [facility] Last Admin: 06/28/18 08:51 Dose: 105 mls/hr Metoclopramide HCl (Reglan) 10 mg IVP Q6H PRN PRN Reason: Nausea/Vomiting Metoprolol Succinate (Toprol Xl) 50 mg PO DAILY [facility] Last Admin: 06/25/18 10:35 Dose: Not Given Ondansetron HCl (Zofran Inj) 4 mg IVP Q6 PRN PRN Reason: Nausea/Vomiting Last Admin: 06/24/18 19:24 Dose: 4 mg Ticagrelor (Brilinta) 90 mg PO DAILY [facility] Last Admin: 06/28/18 08:53 Dose: 90 mg Tramadol HCl (Ultram) 50 mg PO Q4 PRN PRN Reason: Pain, severe (8-10) - Labs Labs: 06/28/18 08:55 06/28/18 08:55 - Extremities Exam Additional comments: L hip: Dressings CDI Incision CDI with steri strips, nylon sutures to portal sites, no drainage, no erythema mild swelling, compartments soft sensation intact SP/DP/TN motor intact EHL/FHL/TA/G pedal pulses intact calves soft NT b/l Assessment and Plan (1) Primary osteoarthritis of left hip Assessment & Plan: POD#4 s/p L ALICIA -HGB stable, VSS -PT/OT -DVT ppx -Dressings changed -orthopedically stable for discharge to home with home care specialist and home PT -above d/w Dr. Bauer in agreement Status: Acute
--- NOTE | 2018-06-28 10:33 | CP.PCM.DIS ---
Provider - Provider Date of Admission: 06/24/18 12:15 Attending physician: Guero Bueno Primary care physician: PMD: Dr Alvarez Painter Drum: Raul Marquez Consults: 06/24/18 06:57 Orthopedic Consult Routine Comment: Consulting Provider: Herb Bauer III Consulting Physician: Herb Bauer III Reason for Consult: Left Hip osteoarthritis 06/24/18 12:15 Case Management Referral Routine Comment: Physician Instructions: Reason For Exam: Reason for Referral: Discharge Planning 06/25/18 09:25 Cardiology Consult Routine Comment: Consulting Provider: Chetan Lamas Consulting Physician: Chetan Lamas Reason for Consult: post op mgmt, hx CAD/stents Time Spent in preparation of Discharge (in minutes): 30 Diagnosis - Discharge Diagnosis (1) Acute blood loss anemia Status: Acute (2) Status post left hip replacement Status: Acute Hospital Course - Lab Results Lab Results: Most Recent Lab Values WBC 8.7 K/uL (4.8-10.8) 06/28/18 08:55 RBC 2.82 Mil/uL (4.40-5.90) L 06/28/18 08:55 Hgb 9.1 g/dL (12.0-18.0) L 06/28/18 08:55 Hct 26.8 % (35.0-51.0) L 06/28/18 08:55 MCV 94.9 fl (80.0-94.0) H 06/28/18 08:55 MCH 32.4 pg (27.0-31.0) H 06/28/18 08:55 MCHC 34.1 g/dL (33.0-37.0) 06/28/18 08:55 RDW 14.2 % (11.5-14.5) 06/28/18 08:55 Plt Count 251 K/uL (130-400) 06/28/18 08:55 MPV 8.7 fl (7.2-11.7) 06/24/18 06:40 Neut % (Auto) 67.4 % (50.0-75.0) 06/24/18 06:40 Lymph % (Auto) 21.8 % (20.0-40.0) 06/24/18 06:40 [place] % (Auto) 7.3 % (0.0-10.0) 06/24/18 06:40 Eos % (Auto) 2.4 % (0.0-4.0) 06/24/18 06:40 Baso % (Auto) 1.1 % (0.0-2.0) 06/24/18 06:40 Neut # (Auto) 4.6 K/uL (1.8-7.0) 06/24/18 06:40 Lymph # (Auto) 1.5 K/uL (1.0-4.3) 06/24/18 06:40 [place] # (Auto) 0.5 K/uL (0.0-0.8) 06/24/18 06:40 Eos # (Auto) 0.2 K/uL (0.0-0.7) 06/24/18 06:40 Baso # (Auto) 0.1 K/uL (0.0-0.2) 06/24/18 06:40 Sodium 136 mmol/l (132-148) 06/28/18 08:55 Potassium 4.8 MMOL/L (3.6-5.0) 06/28/18 08:55 Chloride 99 mmol/L (98-107) 06/28/18 08:55 Carbon Dioxide 25 mmol/L (22-30) 06/28/18 08:55 Anion Gap 17 (10-20) 06/28/18 08:55 BUN 17 mg/dl (9-20) 06/28/18 08:55 Creatinine 1.0 mg/dl (0.8-1.5) 06/28/18 08:55 Est GFR ( Amer) > 60 06/28/18 08:55 Est GFR (Non-Af Amer) > 60 06/28/18 08:55 POC Glucose (mg/dL) 130 mg/dL (65-110) H 06/25/18 09:00 Random Glucose 108 mg/dL (75-110) 06/28/18 08:55 Calcium 8.6 mg/dL (8.4-10.2) 06/28/18 08:55 25-OH Vitamin D Total 34.3 NG/ML (30.0-100.0) 06/25/18 05:55 Blood Type A POSITIVE 06/24/18 06:40 Blood Type Confirm A POSITIVE 06/24/18 20:57 Antibody Screen Negative 06/24/18 06:40 Crossmatch See Detail 06/24/18 06:40 BBK History Checked No verified bt 06/24/18 06:40 - Hospital Course Hospital Course: 68 y/o male patient with past medical history of CAD, HLD distant A Fib and left hip osteoarthritis was seen and evaluated this morning. Patient status post Rapid Response from 06/25/18 due to orthostatic hypotension as he was getting up to perform physical therapy. Patient condition improved over the weekend and is now resting comfortably in bed denies dizziness, abdominal pain, constipation, shortness of breath or chest pain. Patient anemia improving, pain is controlled, and patient voiding freely Left Hip Primary Osteoarthritis s/p Left THR POD#5 - pt doing well post op, pain controlled - received 3 doses of Cefazolin (Surg Prophylaxis) Orthostatic Hypotension due to Hypovolemia, resolved - H/H 9.07/03. History of CAD with Stent Placement - chronic, stable - continue home meds- Brilinta, ASA, Statin and Metropolol Acute Blood Loss anemia, post op - H/H 9.07/03.8 - Rx Urinary Retention likely due to anesthesia and Opiatees - resolved Constipation - resolved - Rx - Date & Time of H&P Date of H&P: 06/28/18 Time of H&P: 10:33 Discharge Exam - Head Exam Head Exam: ATRAUMATIC, NORMAL INSPECTION, NORMOCEPHALIC - Eye Exam Eye Exam: Normal appearance, PERRL - ENT Exam ENT Exam: Mucous Membranes Moist - Neck Exam Neck exam: Full Rom - Respiratory Exam Respiratory Exam: Clear to PA & Lateral, NORMAL BREATHING PATTERN. absent: Rales, Rhonchi, Wheezes - Cardiovascular Exam Cardiovascular Exam: REGULAR RHYTHM, +S1, +S2 - GI/Abdominal Exam GI & Abdominal Exam: Normal Bowel Sounds, Soft. absent: Distended, Firm, Guarding - Extremities Exam Additional comments: Dressings C/D/I, NV intact - Back Exam Back exam: absent: CVA tenderness (L), CVA tenderness (R) - Neurological Exam Neurological exam: Alert, Oriented x3 - Psychiatric Exam Psychiatric exam: Normal Affect, Normal Mood - Skin Skin Exam: Normal Color Discharge Plan - Follow Up Plan Condition: GOOD Disposition: HOME/ ROUTINE Patient education suggested?: Yes Instructions: Osteoarthritis (DC), Coronary Heart Disease (DC) Additional Instructions: Patient to follow up with Dr. Bauer within one week of discharge, and to follow up with cardiology
--- NOTE | 2018-06-28 10:35 | CP.PCM.PN ---
Subjective - Date & Time of Evaluation Date of Evaluation: 06/28/18 Time of Evaluation: 09:30 - Subjective Subjective: NO CHEST PAIN OR SOB FEELS BETTER WITHOUT ANY REPEAT WEAKNESS Objective - Vital Signs/Intake and Output Vital Signs (last 24 hours): Temp Pulse Resp BP Pulse Ox 98.0 F 79 18 124/68 97 06/28/18 08:34 06/28/18 08:34 06/28/18 08:34 06/28/18 08:34 06/28/18 08:34 - Medications Medications: Current Medications Acetaminophen (Tylenol 325mg Tab) 975 mg PO Q6 PRN PRN Reason: Pain, moderate (4-7) Last Admin: 06/26/18 06:39 Dose: 975 mg Aspirin (Ecotrin) 81 mg PO DAILY [facility] Last Admin: 06/28/18 08:53 Dose: 81 mg Atorvastatin Calcium (Lipitor) 20 mg PO DAILY [facility] Last Admin: 06/28/18 09:06 Dose: Not Given Bisacodyl (Dulcolax) 10 mg PO HS PRN PRN Reason: Constipation Last Admin: 06/28/18 08:54 Dose: 10 mg Docusate Sodium (Colace) 100 mg PO BID [facility] Last Admin: 06/28/18 08:53 Dose: 100 mg Enoxaparin Sodium (Lovenox) 40 mg SC DAILY [facility]; Protocol Last Admin: 06/28/18 08:52 Dose: 40 mg Fenofibrate (Tricor) 145 mg PO DAILY [facility] Last Admin: 06/28/18 08:52 Dose: 145 mg Iron Sucrose 100 mg/ Sodium (Chloride) 105 mls @ 105 mls/hr IVPB DAILY [facility] Last Admin: 06/28/18 08:51 Dose: 105 mls/hr Metoclopramide HCl (Reglan) 10 mg IVP Q6H PRN PRN Reason: Nausea/Vomiting Metoprolol Succinate (Toprol Xl) 50 mg PO DAILY [facility] Last Admin: 06/25/18 10:35 Dose: Not Given Ondansetron HCl (Zofran Inj) 4 mg IVP Q6 PRN PRN Reason: Nausea/Vomiting Last Admin: 06/24/18 19:24 Dose: 4 mg Ticagrelor (Brilinta) 90 mg PO DAILY [facility] Last Admin: 06/28/18 08:53 Dose: 90 mg Tramadol HCl (Ultram) 50 mg PO Q4 PRN PRN Reason: Pain, severe (8-10) - Labs Labs: 06/28/18 08:55 06/28/18 08:55 - Respiratory Exam Respiratory Exam: Clear to Ausculation Bilateral - Cardiovascular Exam Cardiovascular Exam: REGULAR RHYTHM, +S1, +S2 - Additional Findings Additional findings: H/H 03/04 Assessment and Plan - Assessment and Plan (Free Text) Assessment: S/P LEFT HIP REPLACEMENT CAD-STABLE HYPERLIPIDEMIA Plan: THE PATIENT WILL HAVE PT TODAY AND MAY BE DISCHARGED IF HE DOESN'T HAVE ANY PROBLEMS WITH IT-RESUMPTION OE METOPROLOL WILL ALSO DEPEND ON BP WITH PT THE PATIENT STATES THAT HE WAS TAKING BRILINTA TWICE A DAY AND THAT CAN BE RESTARTED CONTINUE ASPIRIN, STATINS, FENOFIBRATE THE PATIENT WILL FU WITH DR BANUELOS
--- NOTE | 2018-06-28 11:48 | CP.PCM.PN ---
Subjective - Date & Time of Evaluation Date of Evaluation: 06/28/18 Time of Evaluation: 11:46 - Subjective Subjective: 68 y/o male patient with past medical history of CAD, HLD distant A Fib and left hip osteoarthritis was seen and evaluated this morning. Patient status post Rapid Response from 06/25/18 due to orthostatic hypotension as he was getting up to perform physical therapy. Patient condition improved over the weekend and is now resting comfortably in bed denies dizziness, abdominal pain, constipation, shortness of breath or chest pain. Patient anemia improving, pain is controlled, and patient voiding freely Objective - Vital Signs/Intake and Output Vital Signs (last 24 hours): Temp Pulse Resp BP Pulse Ox 98.0 F 79 18 124/68 97 06/28/18 08:34 06/28/18 08:34 06/28/18 08:34 06/28/18 08:34 06/28/18 08:34 - Medications Medications: Current Medications Acetaminophen (Tylenol 325mg Tab) 975 mg PO Q6 PRN PRN Reason: Pain, moderate (4-7) Last Admin: 06/26/18 06:39 Dose: 975 mg Aspirin (Ecotrin) 81 mg PO DAILY [facility] Last Admin: 06/28/18 08:53 Dose: 81 mg Atorvastatin Calcium (Lipitor) 20 mg PO DAILY [facility] Last Admin: 06/28/18 09:06 Dose: Not Given Bisacodyl (Dulcolax) 10 mg PO HS PRN PRN Reason: Constipation Last Admin: 06/28/18 08:54 Dose: 10 mg Docusate Sodium (Colace) 100 mg PO BID [facility] Last Admin: 06/28/18 08:53 Dose: 100 mg Enoxaparin Sodium (Lovenox) 40 mg SC DAILY [facility]; Protocol Last Admin: 06/28/18 08:52 Dose: 40 mg Fenofibrate (Tricor) 145 mg PO DAILY [facility] Last Admin: 06/28/18 08:52 Dose: 145 mg Iron Sucrose 100 mg/ Sodium (Chloride) 105 mls @ 105 mls/hr IVPB DAILY [facility] Last Admin: 06/28/18 08:51 Dose: 105 mls/hr Sodium Chloride (Sodium Chloride 0.9%) 1,000 mls @ 100 mls/hr IV .Q10H [facility] Stop: 06/29/18 11:33 Metoclopramide HCl (Reglan) 10 mg IVP Q6H PRN PRN Reason: Nausea/Vomiting Metoprolol Succinate (Toprol Xl) 50 mg PO DAILY [facility] Last Admin: 06/25/18 10:35 Dose: Not Given Ondansetron HCl (Zofran Inj) 4 mg IVP Q6 PRN PRN Reason: Nausea/Vomiting Last Admin: 06/24/18 19:24 Dose: 4 mg Ticagrelor (Brilinta) 90 mg PO DAILY [facility] Last Admin: 06/28/18 08:53 Dose: 90 mg Tramadol HCl (Ultram) 50 mg PO Q4 PRN PRN Reason: Pain, severe (8-10) - Labs Labs: 06/28/18 08:55 06/28/18 08:55 - Constitutional Appears: Well, Non-toxic, No Acute Distress - Head Exam Head Exam: ATRAUMATIC, NORMOCEPHALIC - Eye Exam Eye Exam: Normal appearance, PERRL - ENT Exam ENT Exam: Mucous Membranes Moist - Neck Exam Neck Exam: Full ROM. absent: Lymphadenopathy - Respiratory Exam Respiratory Exam: Clear to Ausculation Bilateral, NORMAL BREATHING PATTERN. absent: Rales, Rhonchi, Wheezes - Cardiovascular Exam Cardiovascular Exam: REGULAR RHYTHM, +S1, +S2 - GI/Abdominal Exam GI & Abdominal Exam: Soft, Normal Bowel Sounds. absent: Firm, Guarding, Rigid - Extremities Exam Extremities Exam: Full ROM Additional comments: Dressings C/D/I, NV intact - Neurological Exam Neurological Exam: Alert, Awake, Oriented x3 - Psychiatric Exam Psychiatric exam: Normal Affect, Normal Mood Assessment and Plan (1) Acute blood loss anemia Status: Acute (2) Status post left hip replacement Status: Acute - Assessment and Plan (Free Text) Assessment: 68 y/o male patient with past medical history of CAD, HLD distant A Fib and left hip osteoarthritis was seen and evaluated this morning s/p left THR POD5. Patient status post Rapid Response from 06/25/18 due to orthostatic hypotension as he was getting up to perform physical therapy. Patient condition improved over the weekend and is now resting comfortably in bed denies dizziness, abdominal pain, constipation, shortness of breath or chest pain. Patient anemia improving, pain is controlled, and patient voiding freely Plan: Left Hip Primary Osteoarthritis s/p Left THR - pain controlled with Tylenol prn - PT/OT- recommend TCU for patient for further rehab - Pending patient transfer to TCU - Continue Incentive spirometry - received 3 doses of Cefazolin (Surg Prophylaxis) Orthostatic Hypotension due to Hypovolemia, resolved - IVF bolus and maintenace IVF hydration History of CAD with Stent Placement - Pt on Brilinta, ASA and statin, Brilinta changed to 90 mg PO BID - Continue to Hold Metoprolol as rec by Cardiology Acute Blood Loss anemia, post op - transfused 2 units PRBC - H/H stable at this time, will continue to monitor - IV Venofer Urinary Retention likely due to anesthesia and Opiate, resolved -straight cath done once DVT proph - discontinue Lovenox at this time Constipation - Dulcolax 10 mg PO - Colace
[2018-06-28] MEDS: Sodium Chloride 0.9% 1,000 ML IV SCH ×3 (11:55→21:45)
[2018-06-29 06:48] LABS: HEMOGLOBIN 8.9 g/dL (12.0-18.0); MEAN CELL VOLUME 92.9 fl (80.0-94.0); MEAN CORPUSCULAR HEMOGLOBIN 32.7 pg (27.0-31.0); MEAN CORPUSCULAR HGB CONC 35.2 g/dL (33.0-37.0); RBC 2.71 Mil/uL (4.40-5.90); RED CELL DISTRIBUTION WIDTH 14.1 % (11.5-14.5); WHITE BLOOD COUNT 7.2 K/uL (4.8-10.8)
[2018-06-29 06:53] LABS: BLOOD UREA NITROGEN 17 mg/dl (9-20); CALCIUM 8.3 mg/dL (8.4-10.2); GFR NON-AFRICAN AMERICAN > 60
[2018-06-29] MEDS: Sodium Chloride 0.9% 1,000 ML IV SCH (08:20)
--- NOTE | 2018-06-29 08:49 | CP.PCM.PN ---
Subjective - Date & Time of Evaluation Date of Evaluation: 06/29/18 Time of Evaluation: 07:30 - Subjective Subjective: Patient seen and examined at bedside comfortable. Pain is well controlled. Able to transfer with PT, minimal ambulation due to orthostatic hypotension despite IV bolus. No other complaints. Denies CP/SOB/fever/dizziness currently. Objective - Vital Signs/Intake and Output Vital Signs (last 24 hours): Temp Pulse Resp BP Pulse Ox 98.8 F 76 20 144/69 97 06/29/18 08:08 06/29/18 08:08 06/29/18 08:08 06/29/18 08:08 06/29/18 08:08 - Medications Medications: Current Medications Acetaminophen (Tylenol 325mg Tab) 975 mg PO Q6 PRN PRN Reason: Pain, moderate (4-7) Last Admin: 06/26/18 06:39 Dose: 975 mg Aspirin (Ecotrin) 81 mg PO DAILY [facility] Last Admin: 06/29/18 08:29 Dose: 81 mg Atorvastatin Calcium (Lipitor) 20 mg PO DAILY [facility] Last Admin: 06/29/18 08:38 Dose: Not Given Bisacodyl (Dulcolax) 10 mg PO HS PRN PRN Reason: Constipation Last Admin: 06/28/18 08:54 Dose: 10 mg Docusate Sodium (Colace) 100 mg PO BID [facility] Last Admin: 06/29/18 08:28 Dose: 100 mg Enoxaparin Sodium (Lovenox) 40 mg SC DAILY [facility]; Protocol Fenofibrate (Tricor) 145 mg PO DAILY [facility] Last Admin: 06/29/18 08:29 Dose: 145 mg Iron Sucrose 100 mg/ Sodium (Chloride) 105 mls @ 105 mls/hr IVPB DAILY [facility] Last Admin: 06/29/18 08:28 Dose: 105 mls/hr Sodium Chloride (Sodium Chloride 0.9%) 1,000 mls @ 100 mls/hr IV .Q10H [facility] Stop: 06/29/18 11:33 Last Admin: 06/29/18 08:20 Dose: 100 mls/hr Metoclopramide HCl (Reglan) 10 mg IVP Q6H PRN PRN Reason: Nausea/Vomiting Metoprolol Succinate (Toprol Xl) 50 mg PO DAILY [facility] Last Admin: 06/25/18 10:35 Dose: Not Given Ondansetron HCl (Zofran Inj) 4 mg IVP Q6 PRN PRN Reason: Nausea/Vomiting Last Admin: 06/24/18 19:24 Dose: 4 mg Ticagrelor (Brilinta) 90 mg PO BID [facility] Last Admin: 06/29/18 08:28 Dose: 90 mg Tramadol HCl (Ultram) 50 mg PO Q4 PRN PRN Reason: Pain, severe (8-10) - Labs Labs: 06/29/18 05:55 06/29/18 05:55 - Extremities Exam Additional comments: L hip: Dressings CDI mild swelling, compartments soft sensation intact SP/DP/TN motor intact EHL/FHL/TA/G pedal pulses intact calves soft NT b/l Assessment and Plan (1) Primary osteoarthritis of left hip Assessment & Plan: POD#5 s/p L ALICIA -HGB stable, continue with supplemental iron -PT/OT WBAT -DVT ppx, continue lovenox as per Dr. Bauer -orthopedically stable for discharge to TCU today -above d/w Dr. Bauer in agreement Status: Acute
--- NOTE | 2018-06-29 09:55 | CP.PCM.DIS ---
<Mary James - Last Filed: 06/29/18 10:12> Provider - Provider Date of Admission: 06/24/18 12:15 Attending physician: Guero Bueno Primary care physician: PMD: Dr Alvarez Ophthmologist: Dr Bauer Fermentation Scientist: Raul Marquez Consults: 06/24/18 06:57 Orthopedic Consult Routine Comment: Consulting Provider: Herb Bauer III Consulting Physician: Herb Bauer III Reason for Consult: Left Hip osteoarthritis 06/24/18 12:15 Case Management Referral Routine Comment: Physician Instructions: Reason For Exam: Reason for Referral: Discharge Planning 06/25/18 09:25 Cardiology Consult Routine Comment: Consulting Provider: Chetan Lamas Consulting Physician: Chetan Lamas Reason for Consult: post op mgmt, hx CAD/stents Time Spent in preparation of Discharge (in minutes): 30 Diagnosis - Discharge Diagnosis (1) Acute blood loss anemia Status: Acute (2) Status post left hip replacement Status: Acute Hospital Course - Lab Results Lab Results: Most Recent Lab Values WBC 7.2 K/uL (4.8-10.8) 06/29/18 05:55 RBC 2.71 Mil/uL (4.40-5.90) L 06/29/18 05:55 Hgb 8.9 g/dL (12.0-18.0) L 06/29/18 05:55 Hct 25.2 % (35.0-51.0) L 06/29/18 05:55 MCV 92.9 fl (80.0-94.0) D 06/29/18 05:55 MCH 32.7 pg (27.0-31.0) H 06/29/18 05:55 MCHC 35.2 g/dL (33.0-37.0) 06/29/18 05:55 RDW 14.1 % (11.5-14.5) 06/29/18 05:55 Plt Count 257 K/uL (130-400) 06/29/18 05:55 MPV 8.7 fl (7.2-11.7) 06/24/18 06:40 Neut % (Auto) 67.4 % (50.0-75.0) 06/24/18 06:40 Lymph % (Auto) 21.8 % (20.0-40.0) 06/24/18 06:40 [place] % (Auto) 7.3 % (0.0-10.0) 06/24/18 06:40 Eos % (Auto) 2.4 % (0.0-4.0) 06/24/18 06:40 Baso % (Auto) 1.1 % (0.0-2.0) 06/24/18 06:40 Neut # (Auto) 4.6 K/uL (1.8-7.0) 06/24/18 06:40 Lymph # (Auto) 1.5 K/uL (1.0-4.3) 06/24/18 06:40 [place] # (Auto) 0.5 K/uL (0.0-0.8) 06/24/18 06:40 Eos # (Auto) 0.2 K/uL (0.0-0.7) 06/24/18 06:40 Baso # (Auto) 0.1 K/uL (0.0-0.2) 06/24/18 06:40 Sodium 138 mmol/l (132-148) 06/29/18 05:55 Potassium 4.2 MMOL/L (3.6-5.0) 06/29/18 05:55 Chloride 107 mmol/L (98-107) 06/29/18 05:55 Carbon Dioxide 27 mmol/L (22-30) 06/29/18 05:55 Anion Gap 8 (10-20) L 06/29/18 05:55 BUN 17 mg/dl (9-20) 06/29/18 05:55 Creatinine 1.0 mg/dl (0.8-1.5) 06/29/18 05:55 Est GFR ( Amer) > 60 06/29/18 05:55 Est GFR (Non-Af Amer) > 60 06/29/18 05:55 POC Glucose (mg/dL) 130 mg/dL (65-110) H 06/25/18 09:00 Random Glucose 104 mg/dL (75-110) 06/29/18 05:55 Calcium 8.3 mg/dL (8.4-10.2) L 06/29/18 05:55 25-OH Vitamin D Total 34.3 NG/ML (30.0-100.0) 06/25/18 05:55 Blood Type A POSITIVE 06/24/18 06:40 Blood Type Confirm A POSITIVE 06/24/18 20:57 Antibody Screen Negative 06/24/18 06:40 Crossmatch See Detail 06/24/18 06:40 BBK History Checked No verified bt 06/24/18 06:40 - Hospital Course Hospital Course: 68 y/o male patient with past medical history of CAD, HLD distant A Fib and left hip osteoarthritis was seen and evaluated this morning s/p left THR POD5. Patient status post Rapid Response from 06/25/18 due to orthostatic hypotension as he was getting up to perform physical therapy. Patient condition improved over the weekend and is now resting comfortably in bed denies dizziness, abdominal pain, constipation, shortness of breath or chest pain. Patient anemia improving, pain is controlled, and patient voiding freely Left Hip Primary Osteoarthritis s/p Left THR - pain controlled with Tylenol prn - PT/OT- recommend TCU for patient for further rehab - Continue Incentive spirometry - received 3 doses of Cefazolin (Surg Prophylaxis) Orthostatic Hypotension due to Hypovolemia, resolved - IVF bolus and maintenace IVF hydration History of CAD with Stent Placement - Pt on Brilinta, ASA and statin, Brilinta changed to 90 mg PO BID - Continue to Hold Metoprolol as rec by Cardiology Acute Blood Loss anemia, post op - transfused 2 units PRBC - H/H stable at this time, will continue to monitor - IV Venofer Urinary Retention likely due to anesthesia and Opiate, resolved -straight cath done once DVT proph - discontinue Lovenox at this time Constipation - Dulcolax 10 mg PO - Colace - Date & Time of H&P Date of H&P: 06/29/18 Time of H&P: 09:57 Discharge Exam - Head Exam Head Exam: ATRAUMATIC, NORMOCEPHALIC - Eye Exam Eye Exam: Normal appearance, PERRL - ENT Exam ENT Exam: Mucous Membranes Moist - Neck Exam Neck exam: Full Rom - Respiratory Exam Respiratory Exam: Clear to PA & Lateral, NORMAL BREATHING PATTERN. absent: Rales, Rhonchi, Wheezes - Cardiovascular Exam Cardiovascular Exam: REGULAR RHYTHM, +S1, +S2 - GI/Abdominal Exam GI & Abdominal Exam: Normal Bowel Sounds, Soft. absent: Distended, Firm, Guarding - Extremities Exam Additional comments: L hip: Dressings CDI - Neurological Exam Neurological exam: Alert, Oriented x3 - Skin Skin Exam: Normal Color Discharge Plan - Discharge Medications Prescriptions: Docusate [Colace] 100 mg PO BID #60 cap - Follow Up Plan Condition: GOOD Disposition: REHAB FACILITY/REHAB UNIT Patient education suggested?: Yes Instructions: Osteoarthritis (DC), Total Hip Replacement (DC), Coronary Heart Disease (DC), Hypertension (DC), Hypertension (GEN) Additional Instructions: Patient to follow up with Dr. Bauer within one week of discharge, and to follow up with cardiology Referrals: Herb Bauer III, MD [Staff Provider] - Chetan Lamas MD [Staff Provider] - <FlorianAaliyah Thapa - Last Filed: 06/29/18 15:41> Provider - Provider Date of Admission: 06/24/18 12:15 Attending physician: Guero Bueno Consults: 06/24/18 06:57 Orthopedic Consult Routine Comment: Consulting Provider: Herb Bauer III Consulting Physician: Herb Bauer III Reason for Consult: Left Hip osteoarthritis 06/24/18 12:15 Case Management Referral Routine Comment: Physician Instructions: Reason For Exam: Reason for Referral: Discharge Planning 06/25/18 09:25 Cardiology Consult Routine Comment: Consulting Provider: Chetan Lamas Consulting Physician: Chetan Lamas Reason for Consult: post op mgmt, hx CAD/stents Hospital Course - Lab Results Lab Results: Most Recent Lab Values WBC 7.2 K/uL (4.8-10.8) 06/29/18 05:55 RBC 2.71 Mil/uL (4.40-5.90) L 06/29/18 05:55 Hgb 8.9 g/dL (12.0-18.0) L 06/29/18 05:55 Hct 25.2 % (35.0-51.0) L 06/29/18 05:55 MCV 92.9 fl (80.0-94.0) D 06/29/18 05:55 MCH 32.7 pg (27.0-31.0) H 06/29/18 05:55 MCHC 35.2 g/dL (33.0-37.0) 06/29/18 05:55 RDW 14.1 % (11.5-14.5) 06/29/18 05:55 Plt Count 257 K/uL (130-400) 06/29/18 05:55 MPV 8.7 fl (7.2-11.7) 06/24/18 06:40 Neut % (Auto) 67.4 % (50.0-75.0) 06/24/18 06:40 Lymph % (Auto) 21.8 % (20.0-40.0) 06/24/18 06:40 [place] % (Auto) 7.3 % (0.0-10.0) 06/24/18 06:40 Eos % (Auto) 2.4 % (0.0-4.0) 06/24/18 06:40 Baso % (Auto) 1.1 % (0.0-2.0) 06/24/18 06:40 Neut # (Auto) 4.6 K/uL (1.8-7.0) 06/24/18 06:40 Lymph # (Auto) 1.5 K/uL (1.0-4.3) 06/24/18 06:40 [place] # (Auto) 0.5 K/uL (0.0-0.8) 06/24/18 06:40 Eos # (Auto) 0.2 K/uL (0.0-0.7) 06/24/18 06:40 Baso # (Auto) 0.1 K/uL (0.0-0.2) 06/24/18 06:40 Sodium 138 mmol/l (132-148) 06/29/18 05:55 Potassium 4.2 MMOL/L (3.6-5.0) 06/29/18 05:55 Chloride 107 mmol/L (98-107) 06/29/18 05:55 Carbon Dioxide 27 mmol/L (22-30) 06/29/18 05:55 Anion Gap 8 (10-20) L 06/29/18 05:55 BUN 17 mg/dl (9-20) 06/29/18 05:55 Creatinine 1.0 mg/dl (0.8-1.5) 06/29/18 05:55 Est GFR ( Amer) > 60 06/29/18 05:55 Est GFR (Non-Af Amer) > 60 06/29/18 05:55 POC Glucose (mg/dL) 130 mg/dL (65-110) H 06/25/18 09:00 Random Glucose 104 mg/dL (75-110) 06/29/18 05:55 Calcium 8.3 mg/dL (8.4-10.2) L 06/29/18 05:55 25-OH Vitamin D Total 34.3 NG/ML (30.0-100.0) 06/25/18 05:55 Blood Type A POSITIVE 06/29/18 12:45 Blood Type Confirm A POSITIVE 06/24/18 20:57 Antibody Screen Negative 06/29/18 12:45 Crossmatch See Detail 06/29/18 12:45 BBK History Checked Patient has bt 06/29/18 12:45 Attending/Attestation - Attestation I have personally seen and examined this patient.: Yes I have fully participated in the care of the patient.: Yes I have reviewed all pertinent clinical information, including history, physical exam and plan: Yes
[2018-06-29] MEDS: Lactated Ringer's 1,000 ML IV SCH ×2 (10:42→17:44)
--- NOTE | 2018-06-29 10:43 | CP.PCM.PN ---
Subjective - Date & Time of Evaluation Date of Evaluation: 06/29/18 Time of Evaluation: 10:00 - Subjective Subjective: NO COMPLAINTS TODAY IN BED BUT YESTERDAY DURING PT HIS BP FELL UPON STANDING UP TO 70/40 AND HE GOT DIZZY AND WAS BETTER ONCE BACK IN BED Objective - Vital Signs/Intake and Output Vital Signs (last 24 hours): Temp Pulse Resp BP Pulse Ox 98.8 F 76 20 144/69 97 06/29/18 08:08 06/29/18 08:08 06/29/18 08:08 06/29/18 08:08 06/29/18 08:08 - Medications Medications: Current Medications Acetaminophen (Tylenol 325mg Tab) 975 mg PO Q6 PRN PRN Reason: Pain, moderate (4-7) Last Admin: 06/26/18 06:39 Dose: 975 mg Aspirin (Ecotrin) 81 mg PO DAILY [facility] Last Admin: 06/29/18 08:29 Dose: 81 mg Atorvastatin Calcium (Lipitor) 20 mg PO DAILY [facility] Last Admin: 06/29/18 08:38 Dose: Not Given Bisacodyl (Dulcolax) 10 mg PO HS PRN PRN Reason: Constipation Last Admin: 06/28/18 08:54 Dose: 10 mg Docusate Sodium (Colace) 100 mg PO BID [facility] Last Admin: 06/29/18 08:28 Dose: 100 mg Enoxaparin Sodium (Lovenox) 40 mg SC DAILY [facility]; Protocol Fenofibrate (Tricor) 145 mg PO DAILY [facility] Last Admin: 06/29/18 08:29 Dose: 145 mg Folic Acid (Folic Acid) 1 mg PO DAILY [facility] Last Admin: 06/29/18 10:21 Dose: 1 mg Iron Sucrose 100 mg/ Sodium (Chloride) 105 mls @ 105 mls/hr IVPB DAILY [facility] Last Admin: 06/29/18 08:28 Dose: 105 mls/hr Sodium Chloride (Sodium Chloride 0.9%) 1,000 mls @ 100 mls/hr IV .Q10H [facility] Stop: 06/29/18 11:33 Last Admin: 06/29/18 08:20 Dose: 100 mls/hr Lactated Ringer's (Lactated Ringer's) 1,000 mls @ 125 mls/hr IV .Q8H [facility] Metoclopramide HCl (Reglan) 10 mg IVP Q6H PRN PRN Reason: Nausea/Vomiting Metoprolol Succinate (Toprol Xl) 50 mg PO DAILY [facility] Last Admin: 06/25/18 10:35 Dose: Not Given Ondansetron HCl (Zofran Inj) 4 mg IVP Q6 PRN PRN Reason: Nausea/Vomiting Last Admin: 06/24/18 19:24 Dose: 4 mg Ticagrelor (Brilinta) 90 mg PO BID [facility] Last Admin: 06/29/18 08:28 Dose: 90 mg Tramadol HCl (Ultram) 50 mg PO Q4 PRN PRN Reason: Pain, severe (8-10) - Labs Labs: 06/29/18 05:55 06/29/18 05:55 - Respiratory Exam Respiratory Exam: Clear to Ausculation Bilateral - Cardiovascular Exam Cardiovascular Exam: REGULAR RHYTHM, +S1, +S2 - Extremities Exam Additional comments: NO LE EDEMA - Additional Findings Additional findings: H/H 8.9/25.2 THIS AM Assessment and Plan - Assessment and Plan (Free Text) Assessment: ORTHOSTATIC HYPOTENSION MOST PROBABLY FROM ANEMIA S/P LEFT THR WITH BLOOD LOSS CAD HYPERLIPIDEMIA Plan: I SPOKE TO DR ARZOLA AND DR BANUELOS(PATIENT'S PRIVATE FAMILY SPECIALIST) AND WE ALL AGREE THAT THE PATIENT WOULD BENEFIT FROM 2 MORE UNITS OF RBCS AND THE PATIENT IS AGREEABLE CONTINUE TO HOLD METOPROLOL
[2018-06-29] MEDS: Enoxaparin 40 mg Syringe SC SCH (12:07)
[2018-06-29 21:27] VITALS: RESP 20
[2018-06-30 06:02] LABS: HEMOGLOBIN 10.6 g/dL (12.0-18.0); MEAN CELL VOLUME 92.6 fl (80.0-94.0); MEAN CORPUSCULAR HGB CONC 34.6 g/dL (33.0-37.0); RBC 3.3 Mil/uL (4.40-5.90); RED CELL DISTRIBUTION WIDTH 14.8 % (11.5-14.5); WHITE BLOOD COUNT 7.7 K/uL (4.8-10.8)
[2018-06-30 06:24] LABS: BLOOD UREA NITROGEN 17 mg/dl (9-20); CALCIUM 8.6 mg/dL (8.4-10.2); GFR NON-AFRICAN AMERICAN > 60
[2018-06-30 08:19] VITALS: BP 123/67; PULSE 69; TEMP 98.7; O2SAT 96
[2018-06-30] MEDS: Enoxaparin 40 mg Syringe SC SCH (08:47)
--- NOTE | 2018-06-30 10:38 | CP.PCM.PN ---
<Mary James - Last Filed: 06/30/18 10:35> Subjective - Date & Time of Evaluation Date of Evaluation: 06/30/18 Time of Evaluation: 10:35 - Subjective Subjective: 68 y/o male patient with past medical history of CAD, HLD distant A Fib and left hip osteoarthritis was seen and evaluated this morning s/p left THR POD6. Patient condition has improved and patient seen ambulating with use of walker with physical therapy. Patient orthostatic hypotension also resolved. Patient denies dizziness, abdominal pain, constipation, shortness of breath or chest pain. Patient pain is controlled, and patient voiding freely Objective - Vital Signs/Intake and Output Vital Signs (last 24 hours): Temp Pulse Resp BP Pulse Ox 98.7 F 69 20 123/67 96 06/30/18 08:19 06/30/18 08:19 06/30/18 08:19 06/30/18 08:19 06/30/18 08:19 Intake and Output: 06/30/18 06/30/18 06:59 18:59 Intake Total 0 Balance 0 - Medications Medications: Current Medications Acetaminophen (Tylenol 325mg Tab) 975 mg PO Q6 PRN PRN Reason: Pain, moderate (4-7) Last Admin: 06/26/18 06:39 Dose: 975 mg Acetaminophen (Tylenol 325mg Tab) 650 mg PO Q4 PRN PRN Reason: Fever >100.4 F Aspirin (Ecotrin) 81 mg PO DAILY [facility] Last Admin: 06/30/18 08:49 Dose: 81 mg Atorvastatin Calcium (Lipitor) 20 mg PO DAILY [facility] Last Admin: 06/30/18 08:48 Dose: Not Given Bisacodyl (Dulcolax) 10 mg PO HS PRN PRN Reason: Constipation Last Admin: 06/28/18 08:54 Dose: 10 mg Docusate Sodium (Colace) 100 mg PO BID [facility] Last Admin: 06/30/18 08:48 Dose: 100 mg Enoxaparin Sodium (Lovenox) 40 mg SC DAILY [facility]; Protocol Last Admin: 06/30/18 08:47 Dose: 40 mg Fenofibrate (Tricor) 145 mg PO DAILY [facility] Last Admin: 06/30/18 08:50 Dose: 145 mg Folic Acid (Folic Acid) 1 mg PO DAILY [facility] Last Admin: 06/30/18 08:49 Dose: 1 mg Metoclopramide HCl (Reglan) 10 mg IVP Q6H PRN PRN Reason: Nausea/Vomiting Metoprolol Succinate (Toprol Xl) 50 mg PO DAILY [facility] Last Admin: 06/25/18 10:35 Dose: Not Given Ondansetron HCl (Zofran Inj) 4 mg IVP Q6 PRN PRN Reason: Nausea/Vomiting Last Admin: 06/24/18 19:24 Dose: 4 mg Ticagrelor (Brilinta) 90 mg PO BID [facility] Last Admin: 06/30/18 08:48 Dose: 90 mg Tramadol HCl (Ultram) 50 mg PO Q4 PRN PRN Reason: Pain, severe (8-10) - Labs Labs: 06/30/18 05:40 06/30/18 05:40 - Constitutional Appears: Well, Non-toxic, No Acute Distress - Head Exam Head Exam: ATRAUMATIC, NORMOCEPHALIC - Eye Exam Eye Exam: Normal appearance, PERRL - ENT Exam ENT Exam: Mucous Membranes Moist - Neck Exam Neck Exam: Full ROM. absent: Lymphadenopathy - Respiratory Exam Respiratory Exam: Clear to Ausculation Bilateral, NORMAL BREATHING PATTERN. a bsent: Rales, Rhonchi, Wheezes - Cardiovascular Exam Cardiovascular Exam: REGULAR RHYTHM, +S1, +S2 - GI/Abdominal Exam GI & Abdominal Exam: Soft, Normal Bowel Sounds. absent: Firm, Guarding, Rigid - Extremities Exam Additional comments: Dressing C/D/I, minimal pain with hip range of motion - Neurological Exam Neurological Exam: Alert, Awake, Oriented x3 - Psychiatric Exam Psychiatric exam: Normal Affect, Normal Mood - Skin Skin Exam: Normal Color Assessment and Plan (1) Acute blood loss anemia Status: Acute (2) Status post left hip replacement Status: Acute - Assessment and Plan (Free Text) Assessment: 68 y/o male patient with past medical history of CAD, HLD distant A Fib and left hip osteoarthritis was seen and evaluated this morning s/p left THR POD6. Patient status post Rapid Response from 06/25/18 due to orthostatic hypotension as he was getting up to perform physical therapy. Patient condition has improved and patient seen ambulating with use of walker with physical therapy. Patient orthostatic hypotension also resolved. Patient denies dizziness, abdominal pain, constipation, shortness of breath or chest pain. Patient pain is controlled, and patient voiding freely Patient being transferred to TCU today 06/30/18 for further rehabilitation Plan: Left Hip Primary Osteoarthritis s/p Left THR - pain controlled - PT/OT- recommend TCU for patient for further rehab - Continue Incentive spirometry - received 3 doses of Cefazolin (Surg Prophylaxis) Orthostatic Hypotension due to Hypovolemia, resolved - d/C fluids at this time History of CAD with Stent Placement - Pt on Brilinta, ASA and statin, Brilinta changed to 90 mg PO BID - Continue to Hold Metoprolol as rec by Cardiology Dr. Lamas - restart Metropolol on 07/01/18 once patient in TCU Acute Blood Loss anemia, post op - transfused 4 units PRBC - H/H stable at this time, will continue to monitor- 10.6/30.5 (06/30/18) - D/C IV Venofer Urinary Retention likely due to anesthesia and Opiate, resolved -straight cath done once DVT proph - Lovenox 40 mg SC DAILY Constipation - Dulcolax 10 mg PO - Colmarce <Aaliyah Du - Last Filed: 06/30/18 14:39> Objective - Vital Signs/Intake and Output Vital Signs (last 24 hours): Temp Pulse Resp BP Pulse Ox 98.7 F 69 20 123/67 96 06/30/18 08:19 06/30/18 08:19 06/30/18 08:19 06/30/18 08:19 06/30/18 08:19 Intake and Output: 06/30/18 06/30/18 06:59 18:59 Intake Total 0 Balance 0 - Labs Labs: 06/30/18 05:40 06/30/18 05:40 Attending/Attestation - Attestation I have personally seen and examined this patient.: Yes I have fully participated in the care of the patient.: Yes I have reviewed all pertinent clinical information, including history, physical exam and plan: Yes Notes (Text): Please see Discharge Summary from yesterday . Pt needed 2 units PRBC transfusion prior to d/c to TCU so discharge was held yesterday
--- NOTE | 2018-06-30 11:00 | CP.PCM.PN ---
Subjective - Date & Time of Evaluation Date of Evaluation: 06/30/18 Time of Evaluation: 10:30 - Subjective Subjective: NO CHEST PAIN OR SOB FEELS BETTER TODAY SO SYMPTOMS WITH THERAPY TODAY Objective - Vital Signs/Intake and Output Vital Signs (last 24 hours): Temp Pulse Resp BP Pulse Ox 98.7 F 69 20 123/67 96 06/30/18 08:19 06/30/18 08:19 06/30/18 08:19 06/30/18 08:19 06/30/18 08:19 Intake and Output: 06/30/18 06/30/18 06:59 18:59 Intake Total 0 Balance 0 - Medications Medications: Current Medications Acetaminophen (Tylenol 325mg Tab) 975 mg PO Q6 PRN PRN Reason: Pain, moderate (4-7) Last Admin: 06/26/18 06:39 Dose: 975 mg Acetaminophen (Tylenol 325mg Tab) 650 mg PO Q4 PRN PRN Reason: Fever >100.4 F Aspirin (Ecotrin) 81 mg PO DAILY [facility] Last Admin: 06/30/18 08:49 Dose: 81 mg Atorvastatin Calcium (Lipitor) 20 mg PO DAILY [facility] Last Admin: 06/30/18 08:48 Dose: Not Given Bisacodyl (Dulcolax) 10 mg PO HS PRN PRN Reason: Constipation Last Admin: 06/28/18 08:54 Dose: 10 mg Docusate Sodium (Colace) 100 mg PO BID [facility] Last Admin: 06/30/18 08:48 Dose: 100 mg Enoxaparin Sodium (Lovenox) 40 mg SC DAILY [facility]; Protocol Last Admin: 06/30/18 08:47 Dose: 40 mg Fenofibrate (Tricor) 145 mg PO DAILY [facility] Last Admin: 06/30/18 08:50 Dose: 145 mg Folic Acid (Folic Acid) 1 mg PO DAILY [facility] Last Admin: 06/30/18 08:49 Dose: 1 mg Metoclopramide HCl (Reglan) 10 mg IVP Q6H PRN PRN Reason: Nausea/Vomiting Metoprolol Succinate (Toprol Xl) 50 mg PO DAILY [facility] Last Admin: 06/25/18 10:35 Dose: Not Given Ondansetron HCl (Zofran Inj) 4 mg IVP Q6 PRN PRN Reason: Nausea/Vomiting Last Admin: 06/24/18 19:24 Dose: 4 mg Ticagrelor (Brilinta) 90 mg PO BID [facility] Last Admin: 06/30/18 08:48 Dose: 90 mg Tramadol HCl (Ultram) 50 mg PO Q4 PRN PRN Reason: Pain, severe (8-10) - Labs Labs: 06/30/18 05:40 06/30/18 05:40 - Respiratory Exam Respiratory Exam: Clear to Ausculation Bilateral - Cardiovascular Exam Cardiovascular Exam: REGULAR RHYTHM, +S1, +S2 - Additional Findings Additional findings: PATIENT RECEIVED 2 MORE UNITS OF RBCS H/H 10.6/30.5 TODAY NO SYMPTOMS OR ORTHOSTATIC HYPOTENSION WITH PT THIS AM-GOT UP OOB AND AMBULATED IN THE HALLWAY WITH A WALKER WITHOUT ANY PROBLEMS Assessment and Plan - Assessment and Plan (Free Text) Plan: CONTINUE ASPIRIN, BRILINTA, LOVENOX, ATORVASTATIN AND FENOFIBRATE FOR DISCHARGE TO TCU RESUME METOPROLOL TOMORROW IF STABLE
--- NOTE | 2018-06-30 12:55 | CP.PCM.PN ---
Subjective - Date & Time of Evaluation Date of Evaluation: 06/30/18 Time of Evaluation: 12:00 - Subjective Subjective: Patient seen and examined OOb to chair comfortable. He reports feeling much better today, minimal complaints of pain. Received 2 units PRBC's well yesterday. Ambulated up and down hallway with PT well this AM, no orthostatic hypotension issues. Denies CP/SOB/dizziness/fever. Objective - Vital Signs/Intake and Output Vital Signs (last 24 hours): Temp Pulse Resp BP Pulse Ox 98.7 F 69 20 123/67 96 06/30/18 08:19 06/30/18 08:19 06/30/18 08:19 06/30/18 08:19 06/30/18 08:19 Intake and Output: 06/30/18 06/30/18 06:59 18:59 Intake Total 0 Balance 0 - Medications Medications: Current Medications Acetaminophen (Tylenol 325mg Tab) 975 mg PO Q6 PRN PRN Reason: Pain, moderate (4-7) Last Admin: 06/26/18 06:39 Dose: 975 mg Acetaminophen (Tylenol 325mg Tab) 650 mg PO Q4 PRN PRN Reason: Fever >100.4 F Aspirin (Ecotrin) 81 mg PO DAILY [facility] Last Admin: 06/30/18 08:49 Dose: 81 mg Atorvastatin Calcium (Lipitor) 20 mg PO DAILY [facility] Last Admin: 06/30/18 08:48 Dose: Not Given Bisacodyl (Dulcolax) 10 mg PO HS PRN PRN Reason: Constipation Last Admin: 06/28/18 08:54 Dose: 10 mg Docusate Sodium (Colace) 100 mg PO BID [facility] Last Admin: 06/30/18 08:48 Dose: 100 mg Enoxaparin Sodium (Lovenox) 40 mg SC DAILY [facility]; Protocol Last Admin: 06/30/18 08:47 Dose: 40 mg Fenofibrate (Tricor) 145 mg PO DAILY [facility] Last Admin: 06/30/18 08:50 Dose: 145 mg Folic Acid (Folic Acid) 1 mg PO DAILY [facility] Last Admin: 06/30/18 08:49 Dose: 1 mg Metoclopramide HCl (Reglan) 10 mg IVP Q6H PRN PRN Reason: Nausea/Vomiting Metoprolol Succinate (Toprol Xl) 50 mg PO DAILY [facility] Last Admin: 06/25/18 10:35 Dose: Not Given Ondansetron HCl (Zofran Inj) 4 mg IVP Q6 PRN PRN Reason: Nausea/Vomiting Last Admin: 06/24/18 19:24 Dose: 4 mg Ticagrelor (Brilinta) 90 mg PO BID [facility] Last Admin: 06/30/18 08:48 Dose: 90 mg Tramadol HCl (Ultram) 50 mg PO Q4 PRN PRN Reason: Pain, severe (8-10) - Labs Labs: 06/30/18 05:40 06/30/18 05:40 - Extremities Exam Additional comments: L hip: Dressings CDI mild swelling, compartments soft sensation intact SP/DP/TN motor intact EHL/FHL/TA/G pedal pulses intact calves soft NT b/l Assessment and Plan (1) Primary osteoarthritis of left hip Assessment & Plan: POD#6 s/p L ALICIA -HGB improved -PT/OT WBAT -DVT ppx -orthopedically stable for discharge to TCU today -above d/w Dr. Bauer in agreement Status: Acute
== END 2018-06-30 14:17 | DRG 470 ==
LOC: H.OPSURG 06:07 → H.MEDSURG1 12:15
PROVIDERS: ADMIT Internal Medicine; ATTEND Internal Medicine
PROC: 0QB50ZZ Excision of Left Acetabulum, Open Approach (ICD-10-PCS; 2018-06-24)
PROC: 0SBB0ZZ Excision of Left Hip Joint, Open Approach (ICD-10-PCS; 2018-06-24)
PROC: 0SNB0ZZ Release Left Hip Joint, Open Approach (ICD-10-PCS; 2018-06-24)
PROC: 8E0YXBZ Computer Assisted Procedure of Lower Extremity (ICD-10-PCS; 2018-06-24)
PROC: 0SRB04Z Replacement of Left Hip Joint with Ceramic on Polyethylene Synthetic Substitute, Open Approach (ICD-10-PCS; principal; 2018-06-24 07:45)
PROC: 30233N1 Transfusion of Nonautologous Red Blood Cells into Peripheral Vein, Percutaneous Approach (ICD-10-PCS; 2018-06-25)
DX: M16.12 Unilateral primary osteoarthritis, left hip (principal); D62 Acute posthemorrhagic anemia; E86.0 Dehydration; I95.1 Orthostatic hypotension; I25.119 Atherosclerotic heart disease of native coronary artery with unspecified angina pectoris; E86.1 Hypovolemia; R33.0 Drug induced retention of urine; E78.00 Pure hypercholesterolemia, unspecified; E78.5 Hyperlipidemia, unspecified; I48.91 Unspecified atrial fibrillation; T40.605A Adverse effect of unspecified narcotics, initial encounter; T41.205A Adverse effect of unspecified general anesthetics, initial encounter; I10 Essential (primary) hypertension; Z95.5 Presence of coronary angioplasty implant and graft; K59.00 Constipation, unspecified; M25.752 Osteophyte, left hip; M24.552 Contracture, left hip; M65.9 Synovitis and tenosynovitis, unspecified; M24.052 Loose body in left hip

== ENCOUNTER 2018-06-29 10:18 | Inpatient (IN) | payer OTHER ==
[2018-06-15 16:38] VITALS: BMI 27.7
[2018-06-30 15:00] VITALS: RESP 20
[2018-07-01] MEDS: Enoxaparin 40 mg Syringe SC SCH (08:31)
--- NOTE | 2018-07-01 09:41 | CP.PCM.PN ---
Subjective - Date & Time of Evaluation Date of Evaluation: 07/01/18 Time of Evaluation: 09:39 - Subjective Subjective: Patient complaining of right hand pain. He says it was hurting after IV pulled last night. He says he felt much better with PT yesterday after blood transfusion, and was able to take 2 laps around floor. Denies CP/SOB/dizziness. Objective - Vital Signs/Intake and Output Vital Signs (last 24 hours): Temp Pulse Resp BP Pulse Ox 98.9 F 90 20 109/60 96 07/01/18 08:07 07/01/18 08:07 07/01/18 08:07 07/01/18 08:07 07/01/18 08:07 - Medications Medications: Current Medications Aspirin (Ecotrin) 81 mg PO DAILY [facility] Last Admin: 07/01/18 08:31 Dose: 81 mg Atorvastatin Calcium (Lipitor) 20 mg PO DAILY [facility] Last Admin: 07/01/18 08:37 Dose: Not Given Docusate Sodium (Colace) 100 mg PO BID [facility] Last Admin: 07/01/18 08:31 Dose: 100 mg Enoxaparin Sodium (Lovenox) 40 mg SC DAILY [facility]; Protocol Last Admin: 07/01/18 08:31 Dose: 40 mg Fenofibrate (Tricor) 145 mg PO DAILY [facility] Last Admin: 07/01/18 08:31 Dose: 145 mg Folic Acid (Folic Acid) 1 mg PO DAILY [facility] Last Admin: 07/01/18 08:31 Dose: 1 mg Ticagrelor (Brilinta) 90 mg PO BID [facility] Last Admin: 07/01/18 08:31 Dose: 90 mg - Extremities Exam Additional comments: Left hip: incision intact, dry, no erythema. Mild swelling. +ROM ankle/toes, sensation intact +DP/PT pulses calves soft NT neg homans noted mild erythema dorsum right hand at IV site. Mildly indurated, mildly tender. Will monitor. Assessment and Plan (1) Primary osteoarthritis of left hip Assessment & Plan: POD# 7 s/p left THR monitor hand, warm compresses PT/OT VTE proph ortho stable d/w elle Alejo with above Status: Acute
--- NOTE | 2018-07-01 10:29 | CP.PCM.CON ---
History of Present Illness - History of Present Illness History of Present Illness: THE PATIENT IS A 68 YEAR OLD MALE WHO HAD A TOTAL LEFT HIP REPLACEMENT LAST WEEK AND IS IN TCU FOR [facility] AND I HAVE BEEN ASKED TO FOLLOW HIM. 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 HE WAS VERY ANEMIC AFTER HIS HIP SURGERY AND HAD REPEATED ORTHOSTATIC HYPOTENSION ON PT ATTEMPTS BUT IS NOW BETTER AFTER A TOTAL OF 4U OR RBCS. HE HAS TOLERATED PHYSICAL THERAPY WELL AFTER THAT AND AMBULATED IN THE HALLWAY YESTERDAY WITH A STRETCHER DURING PT WITHOUT ANY PROBLEM. Past Patient History - Past Medical History & Family History Past Medical History?: Yes - Past Social History Smoking Status: Never Smoked - CARDIAC Hx Cardiac Disorders: Yes Hx Angina: Yes Hx Hypercholesterolemia: Yes Hx Hypertension: Yes Other/Comment: AFIB - PULMONARY Hx Respiratory Disorders: No - NEUROLOGICAL Hx Neurological Disorder: No - HEENT Hx HEENT Problems: No - RENAL Hx Chronic Kidney Disease: No - ENDOCRINE/METABOLIC Hx Endocrine Disorders: No - HEMATOLOGICAL/ONCOLOGICAL Hx Blood Disorders: No Hx Blood Transfusions: No Other/Comment: EASING BRUISING DUE TO BLOOD THINNER - INTEGUMENTARY Hx Dermatological Problems: No - MUSCULOSKELETAL/RHEUMATOLOGICAL Hx Musculoskeletal Disorders: Yes Hx Back Pain: Yes Hx Falls: No Hx Herniated Disk: Yes (5 HERNIATED DISC) - GASTROINTESTINAL Hx Gastrointestinal Disorders: No - GENITOURINARY/GYNECOLOGICAL Hx Genitourinary Disorders: No - PSYCHIATRIC Hx Psychophysiologic Disorder: No - SURGICAL HISTORY Hx Surgeries: Yes Hx Angioplasty: Yes (X5) Hx Coronary Stent: Yes (X4) Other/Comment: 06/24/18 left THR - ANESTHESIA Hx Anesthesia: Yes Hx Anesthesia Reactions: No Hx Malignant Hyperthermia: No Meds Allergies/Adverse Reactions: Allergies Allergy/AdvReac Type Severity Reaction Status Date / Time No Known Allergies Allergy Verified 06/30/18 14:24 - Medications Medications: Current Medications Acetaminophen (Tylenol 325mg Tab) 650 mg PO Q6 PRN PRN Reason: Pain, moderate (4-7) Last Admin: 07/01/18 10:06 Dose: 650 mg Aspirin (Ecotrin) 81 mg PO DAILY [facility] Last Admin: 07/01/18 08:31 Dose: 81 mg Docusate Sodium (Colace) 100 mg PO BID [facility] Last Admin: 07/01/18 08:31 Dose: 100 mg Enoxaparin Sodium (Lovenox) 40 mg SC DAILY [facility]; Protocol Last Admin: 07/01/18 08:31 Dose: 40 mg Fenofibrate (Tricor) 145 mg PO DAILY [facility] Last Admin: 07/01/18 08:31 Dose: 145 mg Folic Acid (Folic Acid) 1 mg PO DAILY [facility] Last Admin: 07/01/18 08:31 Dose: 1 mg Ticagrelor (Brilinta) 90 mg PO BID [facility] Last Admin: 07/01/18 08:31 Dose: 90 mg Physical Exam - Respiratory Exam Respiratory Exam: Clear to Auscultation Bilateral - Cardiovascular Exam Cardiovascular Exam: REGULAR RHYTHM, +S1, +S2 - Extremities Exam Additional comments: NO SIGNIFICANT LE EDEMA Results - Vital Signs Recent Vital Signs: Last Vital Signs Temp 98.9 F 07/01/18 08:07 Pulse 90 07/01/18 08:07 Resp 20 07/01/18 08:07 BP 109/60 07/01/18 08:07 Pulse Ox 96 07/01/18 08:07 Assessment & Plan - Assessment and Plan (Free Text) Assessment: CAD-STABLE HYPERLIPIDEMIA S/P LEFT THR Plan: CONTINUE BRILINTA, ASPIRIN, LOVENOX AND FENOFIBRATE ATORVASTATIN STOPPED PATIENT CLAIMS IT CAUSED MUSCLE PAIN IN THE PAST
--- NOTE | 2018-07-01 10:44 | CP.PCM.HP ---
History of Present Illness - History of Present Illness History of Present Illness: 68 y/o male patient with past medical history of CAD, HLD distant A Fib and left hip osteoarthritis was seen and evaluated this morning s/p left THR POD7. Patient status post Rapid Response from 06/25/18 due to orthostatic hypotension as he was getting up to perform physical therapy. Patient experiencing orthostatic hypotension with physical therapy. Patient denies dizziness, abdominal pain, constipation, shortness of breath or chest pain. Patient pain is controlled, and patient voiding freely Present on Admission - Present on Admission Any Indicators Present on Admission: Yes History of DVT/PE: No History of Uncontrolled Diabetes: No Urinary Catheter: No Decubitus Ulcer Present: No Review of Systems - Constitutional Constitutional: absent: Chills, Fever, Weakness - EENT Eyes: absent: Blurred Vision, Change in Vision - Cardiovascular Cardiovascular: absent: Chest Pain, Chest Pain at Rest, Chest Pain with Activity , Dyspnea, Dyspnea on Exertion - Respiratory Respiratory: absent: Cough, Dyspnea - Gastrointestinal Gastrointestinal: absent: Abdominal Pain, Nausea, Vomiting - Neurological Neurological: absent: Tingling Past Patient History - Past Medical History & Family History Past Medical History?: Yes - Past Social History Smoking Status: Never Smoked - CARDIAC Hx Cardiac Disorders: Yes Hx Angina: Yes Hx Hypercholesterolemia: Yes Hx Hypertension: Yes Other/Comment: AFIB - PULMONARY Hx Respiratory Disorders: No - NEUROLOGICAL Hx Neurological Disorder: No - HEENT Hx HEENT Problems: No - RENAL Hx Chronic Kidney Disease: No - ENDOCRINE/METABOLIC Hx Endocrine Disorders: No - HEMATOLOGICAL/ONCOLOGICAL Hx Blood Disorders: No Hx Blood Transfusions: No Other/Comment: EASING BRUISING DUE TO BLOOD THINNER - INTEGUMENTARY Hx Dermatological Problems: No - MUSCULOSKELETAL/RHEUMATOLOGICAL Hx Musculoskeletal Disorders: Yes Hx Back Pain: Yes Hx Falls: No Hx Herniated Disk: Yes (5 HERNIATED DISC) - GASTROINTESTINAL Hx Gastrointestinal Disorders: No - GENITOURINARY/GYNECOLOGICAL Hx Genitourinary Disorders: No - PSYCHIATRIC Hx Psychophysiologic Disorder: No - SURGICAL HISTORY Hx Surgeries: Yes Hx Angioplasty: Yes (X5) Hx Coronary Stent: Yes (X4) Other/Comment: 06/24/18 left THR - ANESTHESIA Hx Anesthesia: Yes Hx Anesthesia Reactions: No Hx Malignant Hyperthermia: No Meds Allergies/Adverse Reactions: Allergies Allergy/AdvReac Type Severity Reaction Status Date / Time No Known Allergies Allergy Verified 06/30/18 14:24 Physical Exam - Constitutional Appears: Well, Non-toxic, No Acute Distress - Head Exam Head Exam: ATRAUMATIC, NORMOCEPHALIC - Eye Exam Eye Exam: Normal appearance, PERRL - ENT Exam ENT Exam: Mucous Membranes Moist - Respiratory Exam Respiratory Exam: Clear to Auscultation Bilateral, NORMAL BREATHING PATTERN. absent: Rales, Rhonchi, Wheezes - Cardiovascular Exam Cardiovascular Exam: REGULAR RHYTHM, +S2 - Extremities Exam Extremities exam: Positive for: normal capillary refill, tenderness - Back Exam Back exam: absent: CVA tenderness (L), CVA tenderness (R) - Neurological Exam Neurological exam: Alert, Oriented x3 - Psychiatric Exam Psychiatric exam: Normal Affect, Normal Mood - Skin Skin Exam: Normal Color Results - Vital Signs Recent Vital Signs: Last Vital Signs Temp 98.9 F 07/01/18 08:07 Pulse 90 07/01/18 08:07 Resp 20 07/01/18 08:07 BP 109/60 07/01/18 08:07 Pulse Ox 96 07/01/18 08:07 Assessment & Plan - Assessment and Plan (Free Text) Assessment: 68 y/o male patient with past medical history of CAD, HLD distant A Fib and left hip osteoarthritis was seen and evaluated this morning s/p left THR POD7. Patient status post Rapid Response from 06/25/18 due to orthostatic hypotension as he was getting up to perform physical therapy. Patient experiencing ort hostatic hypotension with physical therapy. Patient denies dizziness, abdominal pain, constipation, shortness of breath or chest pain. Patient pain is controlled, and patient voiding freely Plan: Left Hip Primary Osteoarthritis s/p Left THR POD7 - pain controlled - Patient to continue physical/occupational therapy in TCU - Continue Incentive spirometry - received 3 doses of Cefazolin (Surg Prophylaxis) Orthostatic Hypotension due to Hypovolemia - monitor vitals - Continue to Hold Metoprolol History of CAD with Stent Placement - Pt on Brilinta, ASA and statin, Brilinta changed to 90 mg PO BID - Continue to Hold Metoprolol Acute Blood Loss anemia, post op - s/p transfused 4 units PRBC - H/H stable at this time, will continue to monitor- 10.6/30.5 (06/30/18) - D/C IV Venofer Urinary Retention likely due to anesthesia and Opiate, resolved -straight cath done once DVT proph - Lovenox 40 mg SC DAILY Constipation - Dulcolax 10 mg PO - Colace - Date & Time Date: 07/01/18 Time: 11:29
--- NOTE | 2018-07-01 11:46 | CP.PCM.PN ---
Subjective - Date & Time of Evaluation Date of Evaluation: 07/01/18 Time of Evaluation: 10:00 - Subjective Subjective: Patient is now status post successful total hip replacement arthroplasty Objective - Vital Signs/Intake and Output Vital Signs (last 24 hours): Temp Pulse Resp BP Pulse Ox 98.9 F 90 20 109/60 96 07/01/18 08:07 07/01/18 08:07 07/01/18 08:07 07/01/18 08:07 07/01/18 08:07 - Medications Medications: Current Medications Acetaminophen (Tylenol 325mg Tab) 650 mg PO Q6 PRN PRN Reason: Pain, moderate (4-7) Last Admin: 07/01/18 10:06 Dose: 650 mg Aspirin (Ecotrin) 81 mg PO DAILY [facility] Last Admin: 07/01/18 08:31 Dose: 81 mg Docusate Sodium (Colace) 100 mg PO BID [facility] Last Admin: 07/01/18 08:31 Dose: 100 mg Enoxaparin Sodium (Lovenox) 40 mg SC DAILY [facility]; Protocol Last Admin: 07/01/18 08:31 Dose: 40 mg Fenofibrate (Tricor) 145 mg PO DAILY [facility] Last Admin: 07/01/18 08:31 Dose: 145 mg Folic Acid (Folic Acid) 1 mg PO DAILY [facility] Last Admin: 07/01/18 08:31 Dose: 1 mg Ticagrelor (Brilinta) 90 mg PO BID [facility] Last Admin: 07/01/18 08:31 Dose: 90 mg - Skin Additional comments: Systemic examination within normal limits Patient has no evidence of chest pain shortness of breath or thromboembolic disease Musculoskeletal examination patient stands erect pelvis level patient has been out of bed to therapy Patient has been seen by BARRON cho Findings were reviewed with her The patient is markedly improved with physical therapy and has ambulated around the floor twice Assessment and Plan - Assessment and Plan (Free Text) Assessment: Assessment patient is status post successful total hip replacement Aggressive physical therapy conservative management to continue
[2018-07-02] MEDS: Enoxaparin 40 mg Syringe SC SCH (08:08)
--- NOTE | 2018-07-02 08:10 | CP.PCM.PN ---
Subjective - Date & Time of Evaluation Date of Evaluation: 07/02/18 Time of Evaluation: 08:08 - Subjective Subjective: Patient complaining of left hip pain, especially when he is going from lying in bed to standing, then says minimal pain once he is up and walking. Denies CP/SOB/dizziness. Says hand is a little tight but no worse than yesterday. Objective - Vital Signs/Intake and Output Vital Signs (last 24 hours): Temp Pulse Resp BP Pulse Ox 98.2 F 64 20 125/61 99 07/02/18 07:48 07/02/18 07:48 07/02/18 07:48 07/02/18 07:48 07/02/18 07:48 - Medications Medications: Current Medications Acetaminophen (Tylenol 325mg Tab) 650 mg PO Q4 PRN PRN Reason: Pain, moderate (4-7) Last Admin: 07/01/18 21:42 Dose: 650 mg Aspirin (Ecotrin) 81 mg PO DAILY [facility] Last Admin: 07/01/18 08:31 Dose: 81 mg Docusate Sodium (Colace) 100 mg PO BID [facility] Last Admin: 07/01/18 17:53 Dose: 100 mg Enoxaparin Sodium (Lovenox) 40 mg SC DAILY [facility]; Protocol Last Admin: 07/01/18 08:31 Dose: 40 mg Fenofibrate (Tricor) 145 mg PO DAILY [facility] Last Admin: 07/01/18 08:31 Dose: 145 mg Folic Acid (Folic Acid) 1 mg PO DAILY [facility] Last Admin: 07/01/18 08:31 Dose: 1 mg Ticagrelor (Brilinta) 90 mg PO BID [facility] Last Admin: 07/01/18 17:53 Dose: 90 mg - Extremities Exam Additional comments: Left hip: incision intact, no visible drainage. Thigh soft, +Rom ankle/toes, sensation intact +DP/PT pulses calves soft NT neg homans right hand: still mild erythema, slightly improved from yesterday, mild tenderness, full ROM fingers Assessment and Plan (1) Primary osteoarthritis of left hip Assessment & Plan: POD#8 s/p left THR PT/OT VTE proph orthopedically stable f/u labs today d/w Dr. Bauer, agrees with above Status: Acute
[2018-07-02 08:44] LABS: HEMOGLOBIN 11.5 g/dL (12.0-18.0); MEAN CELL VOLUME 93.5 fl (80.0-94.0); MEAN CORPUSCULAR HEMOGLOBIN 31.3 pg (27.0-31.0); MEAN CORPUSCULAR HGB CONC 33.5 g/dL (33.0-37.0); RBC 3.66 Mil/uL (4.40-5.90); RED CELL DISTRIBUTION WIDTH 14.4 % (11.5-14.5); WHITE BLOOD COUNT 9.1 K/uL (4.8-10.8)
--- NOTE | 2018-07-02 15:37 | CP.PCM.CON ---
History of Present Illness - History of Present Illness History of Present Illness: 68 year old male admitted to TCU with left hip replacement, with CAD, Lumbar herniated disc, OA Review of Systems - Musculoskeletal Musculoskeletal: Muscle Weakness Past Patient History - Past Medical History & Family History Past Medical History?: Yes - Past Social History Smoking Status: Never Smoked - CARDIAC Hx Cardiac Disorders: Yes Hx Hypercholesterolemia: Yes Hx Hypertension: Yes - PULMONARY Hx Respiratory Disorders: No - NEUROLOGICAL Hx Neurological Disorder: No - HEENT Hx HEENT Problems: No - RENAL Hx Chronic Kidney Disease: No - ENDOCRINE/METABOLIC Hx Endocrine Disorders: No - HEMATOLOGICAL/ONCOLOGICAL Hx Blood Disorders: No Hx Blood Transfusions: No Other/Comment: EASING BRUISING DUE TO BLOOD THINNER - INTEGUMENTARY Hx Dermatological Problems: No - MUSCULOSKELETAL/RHEUMATOLOGICAL Hx Musculoskeletal Disorders: Yes Hx Back Pain: Yes Hx Falls: No Hx Herniated Disk: Yes (5 HERNIATED DISC) - GASTROINTESTINAL Hx Gastrointestinal Disorders: No - GENITOURINARY/GYNECOLOGICAL Hx Genitourinary Disorders: No - PSYCHIATRIC Hx Psychophysiologic Disorder: No - SURGICAL HISTORY Hx Surgeries: Yes Hx Angioplasty: Yes (X5) Hx Coronary Stent: Yes (X4) Other/Comment: 06/24/18 left THR - ANESTHESIA Hx Anesthesia: Yes Hx Anesthesia Reactions: No Hx Malignant Hyperthermia: No Meds Allergies/Adverse Reactions: Allergies Allergy/AdvReac Type Severity Reaction Status Date / Time No Known Allergies Allergy Verified 06/30/18 14:24 - Medications Medications: Current Medications Acetaminophen (Tylenol 325mg Tab) 650 mg PO Q4 PRN PRN Reason: Pain, moderate (4-7) Last Admin: 07/02/18 13:14 Dose: 650 mg Aspirin (Ecotrin) 81 mg PO DAILY [facility] Last Admin: 07/02/18 08:08 Dose: 81 mg Docusate Sodium (Colace) 100 mg PO BID [facility] Last Admin: 07/02/18 08:08 Dose: 100 mg Enoxaparin Sodium (Lovenox) 40 mg SC DAILY [facility]; Protocol Last Admin: 07/02/18 08:08 Dose: 40 mg Fenofibrate (Tricor) 145 mg PO DAILY [facility] Last Admin: 07/02/18 08:08 Dose: 145 mg Folic Acid (Folic Acid) 1 mg PO DAILY [facility] Last Admin: 07/02/18 08:08 Dose: 1 mg Ticagrelor (Brilinta) 90 mg PO BID [facility] Last Admin: 07/02/18 08:08 Dose: 90 mg Physical Exam - Constitutional Appears: Well - Head Exam Head Exam: ATRAUMATIC, NORMAL INSPECTION, NORMOCEPHALIC - Eye Exam Eye Exam: EOMI, Normal appearance, PERRL Pupil Exam: NORMAL ACCOMODATION - ENT Exam ENT Exam: Mucous Membranes Moist, Normal Exam - Neck Exam Neck exam: Positive for: Normal Inspection - Respiratory Exam Respiratory Exam: Clear to Auscultation Bilateral, NORMAL BREATHING PATTERN - Cardiovascular Exam Cardiovascular Exam: REGULAR RHYTHM - GI/Abdominal Exam GI & Abdominal Exam: Normal Bowel Sounds - Rectal Exam Rectal Exam: NORMAL INSPECTION - Exam External exam: NORMAL EXTERNAL EXAM - Extremities Exam Extremities exam: Positive for: normal inspection - Back Exam Back exam: NORMAL INSPECTION - Neurological Exam Neurological exam: Alert, CN II-XII Intact Additional comments: left leg weakness - Psychiatric Exam Psychiatric exam: Normal Affect, Normal Mood - Skin Skin Exam: Dry, Intact, Normal Color Results - Vital Signs Recent Vital Signs: Last Vital Signs Temp 98.2 F 07/02/18 07:48 Pulse 78 07/02/18 13:43 Resp 20 07/02/18 07:48 BP 125/61 07/02/18 07:48 Pulse Ox 96 07/02/18 13:43 - Labs Result Diagrams: 07/02/18 06:43 Labs: Laboratory Results - last 24 hr 07/02/18 06:43 WBC 9.1 RBC 3.66 L Hgb 11.5 L Hct 34.2 L MCV 93.5 MCH 31.3 H MCHC 33.5 RDW 14.4 Plt Count 469 H D Assessment & Plan (1) CAD (coronary artery disease) Status: Acute (2) HTN (hypertension) Status: Acute (3) Hypercholesteremia Status: Acute (4) Primary osteoarthritis of left hip Status: Acute (5) Status post left hip replacement Assessment and Plan: plan for physical, occupational therapy range of [id number], strenghtneing transfers and gait training, equipment eval , thank you for the referral Status: Acute
--- NOTE | 2018-07-02 15:41 | CP.PCM.PN ---
Subjective - Date & Time of Evaluation Date of Evaluation: 07/02/18 Time of Evaluation: 13:20 - Subjective Subjective: patient with some discomfort in the left leg but no pain Objective - Vital Signs/Intake and Output Vital Signs (last 24 hours): Temp Pulse Resp BP Pulse Ox 98.2 F 78 20 125/61 96 07/02/18 07:48 07/02/18 13:43 07/02/18 07:48 07/02/18 07:48 07/02/18 13:43 - Medications Medications: Current Medications Acetaminophen (Tylenol 325mg Tab) 650 mg PO Q4 PRN PRN Reason: Pain, moderate (4-7) Last Admin: 07/02/18 13:14 Dose: 650 mg Aspirin (Ecotrin) 81 mg PO DAILY [facility] Last Admin: 07/02/18 08:08 Dose: 81 mg Docusate Sodium (Colace) 100 mg PO BID [facility] Last Admin: 07/02/18 08:08 Dose: 100 mg Enoxaparin Sodium (Lovenox) 40 mg SC DAILY [facility]; Protocol Last Admin: 07/02/18 08:08 Dose: 40 mg Fenofibrate (Tricor) 145 mg PO DAILY [facility] Last Admin: 07/02/18 08:08 Dose: 145 mg Folic Acid (Folic Acid) 1 mg PO DAILY [facility] Last Admin: 07/02/18 08:08 Dose: 1 mg Ticagrelor (Brilinta) 90 mg PO BID [facility] Last Admin: 07/02/18 08:08 Dose: 90 mg - Labs Labs: 07/02/18 06:43 - Constitutional Appears: Well - Head Exam Head Exam: ATRAUMATIC, NORMAL INSPECTION, NORMOCEPHALIC - Eye Exam Eye Exam: EOMI, Normal appearance, PERRL Pupil Exam: NORMAL ACCOMODATION - ENT Exam ENT Exam: Mucous Membranes Moist, Normal Exam - Neck Exam Neck Exam: Full ROM, Normal Inspection - Respiratory Exam Respiratory Exam: Clear to Ausculation Bilateral, NORMAL BREATHING PATTERN - Cardiovascular Exam Cardiovascular Exam: REGULAR RHYTHM - GI/Abdominal Exam GI & Abdominal Exam: Soft, Normal Bowel Sounds - Rectal Exam Rectal Exam: NORMAL INSPECTION - Exam External exam: NORMAL EXTERNAL EXAM - Extremities Exam Extremities Exam: Full ROM, Normal Capillary Refill, Normal Inspection - Back Exam Back Exam: NORMAL INSPECTION - Neurological Exam Neurological Exam: Alert, Awake Neuro motor strength exam: Left Lower Extremity: 3 - Psychiatric Exam Psychiatric exam: Normal Affect, Normal Mood - Skin Skin Exam: Dry, Intact Assessment and Plan (1) CAD (coronary artery disease) Status: Acute (2) HTN (hypertension) Status: Acute (3) Hypercholesteremia Status: Acute (4) Primary osteoarthritis of left hip Status: Acute (5) Status post left hip replacement Assessment & Plan: plan for physical, and occupational therapy. discussed pain meds pain only wants tylenol.. discussed equipment needs and herbal meds and possible brace for the back. Status: Acute
[2018-07-03] MEDS: Enoxaparin 40 mg Syringe SC SCH (08:15)
--- NOTE | 2018-07-03 11:33 | CP.PCM.PN ---
Subjective - Date & Time of Evaluation Date of Evaluation: 07/03/18 Time of Evaluation: 11:00 - Subjective Subjective: S- excellent progress/minimal post op discomfort L hip Objective - Vital Signs/Intake and Output Vital Signs (last 24 hours): Temp Pulse Resp BP Pulse Ox 98.6 F 67 20 105/65 97 07/03/18 09:11 07/03/18 09:11 07/03/18 09:11 07/03/18 09:11 07/03/18 09:11 - Medications Medications: Current Medications Acetaminophen (Tylenol 325mg Tab) 650 mg PO Q4 PRN PRN Reason: Pain, moderate (4-7) Last Admin: 07/03/18 08:18 Dose: 650 mg Aspirin (Ecotrin) 81 mg PO DAILY [facility] Last Admin: 07/03/18 08:14 Dose: 81 mg Docusate Sodium (Colace) 100 mg PO BID [facility] Last Admin: 07/03/18 08:13 Dose: 100 mg Enoxaparin Sodium (Lovenox) 40 mg SC DAILY [facility]; Protocol Last Admin: 07/03/18 08:15 Dose: 40 mg Fenofibrate (Tricor) 145 mg PO DAILY [facility] Last Admin: 07/03/18 08:15 Dose: 145 mg Folic Acid (Folic Acid) 1 mg PO DAILY [facility] Last Admin: 07/03/18 08:14 Dose: 1 mg Ticagrelor (Brilinta) 90 mg PO BID [facility] Last Admin: 07/03/18 08:13 Dose: 90 mg - Labs Labs: 07/02/18 06:43 - Skin Additional comments: Obj excellent progree s/p L THR L hip wound benign N/V intact no gross deficits pt doing extremel well Hgb 11 - Additional Findings Additional findings: Obj excellent progres s/p L THR no calf tenderness/no Diana's orthopedically stable L hip wound benign thigh soft minimal post op discomfort Assessment and Plan - Assessment and Plan (Free Text) Assessment: A- s/p L THR anterior approach P- orthopedically stable P- weight bearing to tolerance orthopedically stable
[2018-07-04] MEDS: Enoxaparin 40 mg Syringe SC SCH (09:23)
[2018-07-05 07:48] LABS: BLOOD UREA NITROGEN 25 mg/dl (9-20); CALCIUM 8.7 mg/dL (8.4-10.2); GFR NON-AFRICAN AMERICAN > 60
--- NOTE | 2018-07-05 10:02 | CP.PCM.PN ---
Subjective - Date & Time of Evaluation Date of Evaluation: 07/05/18 Time of Evaluation: 09:00 - Subjective Subjective: DOING BETTER DOING WELL WITH REHAB Objective - Vital Signs/Intake and Output Vital Signs (last 24 hours): Temp Pulse Resp BP Pulse Ox 99.1 F 82 20 114/69 96 07/04/18 19:51 07/04/18 19:51 07/04/18 19:51 07/04/18 19:51 07/04/18 19:51 - Medications Medications: Current Medications Acetaminophen (Tylenol 325mg Tab) 650 mg PO Q4 PRN PRN Reason: Pain, moderate (4-7) Last Admin: 07/05/18 09:15 Dose: 650 mg Aspirin (Ecotrin) 81 mg PO DAILY [facility] Last Admin: 07/05/18 08:06 Dose: 81 mg Docusate Sodium (Colace) 100 mg PO BID [facility] Last Admin: 07/05/18 08:06 Dose: 100 mg Enoxaparin Sodium (Lovenox) 40 mg SC DAILY [facility]; Protocol Fenofibrate (Tricor) 145 mg PO DAILY [facility] Last Admin: 07/05/18 08:07 Dose: 145 mg Folic Acid (Folic Acid) 1 mg PO DAILY [facility] Last Admin: 07/05/18 08:07 Dose: 1 mg Ticagrelor (Brilinta) 90 mg PO BID [facility] Last Admin: 07/05/18 08:06 Dose: 90 mg - Labs Labs: 07/02/18 06:43 07/05/18 06:30 - Respiratory Exam Respiratory Exam: Clear to Ausculation Bilateral - Cardiovascular Exam Cardiovascular Exam: REGULAR RHYTHM, +S1, +S2 - Extremities Exam Additional comments: NO LE EDEMA Assessment and Plan - Assessment and Plan (Free Text) Assessment: S/P LEFT THR CAD HYPERLIPIDEMIA Plan: CONTINIE BRILINTA, ASPIRIN AND FENOFIBRATE
--- NOTE | 2018-07-05 10:38 | CP.PCM.PN ---
Subjective - Date & Time of Evaluation Date of Evaluation: 07/05/18 Time of Evaluation: 08:30 - Subjective Subjective: Patient seen and examined OOB to chair comfortable. Pain well controlled. Able to ambulate with one crutch with PT over weekend. Extremely happy with progress. No other complaints. Objective - Vital Signs/Intake and Output Vital Signs (last 24 hours): Temp Pulse Resp BP Pulse Ox 99.1 F 82 20 114/69 96 07/04/18 19:51 07/04/18 19:51 07/04/18 19:51 07/04/18 19:51 07/04/18 19:51 - Medications Medications: Current Medications Acetaminophen (Tylenol 325mg Tab) 650 mg PO Q4 PRN PRN Reason: Pain, moderate (4-7) Last Admin: 07/05/18 09:15 Dose: 650 mg Aspirin (Ecotrin) 81 mg PO DAILY [facility] Last Admin: 07/05/18 08:06 Dose: 81 mg Docusate Sodium (Colace) 100 mg PO BID [facility] Last Admin: 07/05/18 08:06 Dose: 100 mg Enoxaparin Sodium (Lovenox) 40 mg SC DAILY [facility]; Protocol Fenofibrate (Tricor) 145 mg PO DAILY [facility] Last Admin: 07/05/18 08:07 Dose: 145 mg Folic Acid (Folic Acid) 1 mg PO DAILY [facility] Last Admin: 07/05/18 08:07 Dose: 1 mg Ticagrelor (Brilinta) 90 mg PO BID [facility] Last Admin: 07/05/18 08:06 Dose: 90 mg - Labs Labs: 07/02/18 06:43 07/05/18 06:30 - Extremities Exam Additional comments: L hip: Dressings CDI sensation intact SP/DP/TN motor intact EHL/FHL/TA/G pedal pulses intact calves soft NT b/l Assessment and Plan (1) Status post left hip replacement Assessment & Plan: POD#11 s/p L ALICIA -PT/OT WBAT -DVT ppx -orthopedically stable -d/c planning to home -above d/w Dr. Bauer in agreement Status: Acute
[2018-07-05] MEDS: Enoxaparin 40 mg Syringe SC SCH (13:46)
[2018-07-05 19:56] VITALS: O2SAT 98
[2018-07-06 08:00] VITALS: BP 121/69; PULSE 66; TEMP 98.6
[2018-07-06] MEDS: Enoxaparin 40 mg Syringe SC SCH (09:32)
--- NOTE | 2018-07-06 11:51 | CP.PCM.PN ---
Subjective - Date & Time of Evaluation Date of Evaluation: 07/06/18 Time of Evaluation: 11:00 - Subjective Subjective: Patient seen and examined at bedside comfortable. No complaints of pain at this time. Very pleased with his progress at this time. No new complaints. Objective - Vital Signs/Intake and Output Vital Signs (last 24 hours): Temp Pulse Resp BP Pulse Ox 98.6 F 66 20 121/69 98 07/06/18 08:00 07/06/18 08:00 07/06/18 08:00 07/06/18 08:00 07/06/18 08:00 - Medications Medications: Current Medications Acetaminophen (Tylenol 325mg Tab) 650 mg PO Q4 PRN PRN Reason: Pain, moderate (4-7) Last Admin: 07/06/18 09:38 Dose: 650 mg Aspirin (Ecotrin) 81 mg PO DAILY [facility] Last Admin: 07/06/18 09:32 Dose: 81 mg Docusate Sodium (Colace) 100 mg PO BID [facility] Last Admin: 07/06/18 09:31 Dose: 100 mg Enoxaparin Sodium (Lovenox) 40 mg SC DAILY [facility]; Protocol Last Admin: 07/06/18 09:32 Dose: 40 mg Fenofibrate (Tricor) 145 mg PO DAILY [facility] Last Admin: 07/06/18 09:32 Dose: 145 mg Folic Acid (Folic Acid) 1 mg PO DAILY [facility] Last Admin: 07/06/18 09:32 Dose: 1 mg Ticagrelor (Brilinta) 90 mg PO BID [facility] Last Admin: 07/06/18 09:32 Dose: 90 mg - Labs Labs: 07/02/18 06:43 07/05/18 06:30 - Extremities Exam Additional comments: L hip: Dressings CDI Incision CDI with steri strips and nylon sutures sensation intact SP/DP/TN motor intact EHL/FHL/TA/G pedal pulses intact calves soft NT b/l Assessment and Plan (1) Status post left hip replacement Assessment & Plan: POD#12 s/p L ALICIA -PT/OT FWB -DVT ppx -orthopedically stable to d/c home -f/u in office this Thursday -above d/w Dr. Bauer in agreement Status: Acute
--- NOTE | 2018-07-06 12:23 | CP.PCM.PN ---
Subjective - Date & Time of Evaluation Date of Evaluation: 07/06/18 Time of Evaluation: 12:15 - Subjective Subjective: FEELS WELL AND AMBULATING WITH A CRUTCH IN NO CHEST PAIN OR SOB NO DIZZINESS Objective - Vital Signs/Intake and Output Vital Signs (last 24 hours): Temp Pulse Resp BP Pulse Ox 98.6 F 66 20 121/69 98 07/06/18 08:00 07/06/18 08:00 07/06/18 08:00 07/06/18 08:00 07/06/18 08:00 - Medications Medications: Current Medications Acetaminophen (Tylenol 325mg Tab) 650 mg PO Q4 PRN PRN Reason: Pain, moderate (4-7) Last Admin: 07/06/18 09:38 Dose: 650 mg Aspirin (Ecotrin) 81 mg PO DAILY [facility] Last Admin: 07/06/18 09:32 Dose: 81 mg Docusate Sodium (Colace) 100 mg PO BID [facility] Last Admin: 07/06/18 09:31 Dose: 100 mg Fenofibrate (Tricor) 145 mg PO DAILY [facility] Last Admin: 07/06/18 09:32 Dose: 145 mg Folic Acid (Folic Acid) 1 mg PO DAILY [facility] Last Admin: 07/06/18 09:32 Dose: 1 mg Ticagrelor (Brilinta) 90 mg PO BID [facility] Last Admin: 07/06/18 09:32 Dose: 90 mg - Labs Labs: 07/02/18 06:43 07/05/18 06:30 - Respiratory Exam Respiratory Exam: Clear to Ausculation Bilateral - Cardiovascular Exam Cardiovascular Exam: REGULAR RHYTHM, +S1, +S2 - Extremities Exam Additional comments: NO SIGNIFICANT LE EDEMA - Additional Findings Additional findings: H/H K+ 4.3 Assessment and Plan - Assessment and Plan (Free Text) Assessment: LEFT THR-STABLE CAD-STABLE HYPERLIPIDEMIA Plan: OK TO DISCHARGE THE PATIENT TO HOME TODAY THE PATIENT WILL GO HOME ON BRILINTA, ASPIRIN, CRESTOR AND FENOFIBRATE I RECOMMEND THAT HE STAY OFF METOPROLOL UNTIL HE SEES HIS LMD IN ABOUT ONE WEEK HIS BP HAS BEEN LOW NORMAL. IT CAN BE RESUMED AT THAT TIME IF THE BP REMAINS GOOD. HE TOLD ME THAT HE WAS ONLY TAKING 12.5 MGS DAILY. HE ALSO HAD A CARDIAC CATH IN DECEMBER AND HAD A GOOD NUCLEAR STRESS TEST ONE WEEK PRIOR TO SURGERY. HE WILL FOLLOW UP CARDIAC CARE WITH DR BANUELOS OF [facility].
--- NOTE | 2018-07-06 12:33 | CP.PCM.DIS ---
Provider - Provider Date of Admission: 06/30/18 14:32 Attending physician: Aaliyah Du MD Consults: 06/30/18 14:33 Cardiology Consult Routine Comment: Consulting Provider: Chetan Lamas Consulting Physician: Chetan Lamas Reason for Consult: CAD Orthopedic Consult Routine Comment: Consulting Provider: Herb Bauer III Consulting Physician: Herb Bauer III Reason for Consult: s/p THR 06/30/18 15:00 Pastoral Care Referral Routine Comment: Physician Instructions: Reason For Exam: advance directive Social Work Referral Routine Comment: d/c plannning Physician Instructions: Reason For Exam: eval 06/30/18 15:22 Physiatry Consult Routine Comment: Consulting Provider: Elijah Trotter Consulting Physician: Elijah Trotter Reason for Consult: s/p THR Time Spent in preparation of Discharge (in minutes): 25 Diagnosis - Discharge Diagnosis (1) Status post left hip replacement Status: Acute Comment: continue outpatient PT 3 times a week for a month (2) Acute blood loss anemia Status: Acute Comment: stable. received 3 units of PRBC. last Hgb: 11.5 (3) CAD (coronary artery disease) Status: Chronic Comment: continue Brilinta, ASA and statin. Metoprolol held because of orthostatic hypotension Hospital Course - Lab Results Lab Results: Most Recent Lab Values WBC 9.1 K/uL (4.8-10.8) 07/02/18 06:43 RBC 3.66 Mil/uL (4.40-5.90) L 07/02/18 06:43 Hgb 11.5 g/dL (12.0-18.0) L 07/02/18 06:43 Hct 34.2 % (35.0-51.0) L 07/02/18 06:43 MCV 93.5 fl (80.0-94.0) 07/02/18 06:43 MCH 31.3 pg (27.0-31.0) H 07/02/18 06:43 MCHC 33.5 g/dL (33.0-37.0) 07/02/18 06:43 RDW 14.4 % (11.5-14.5) 07/02/18 06:43 Plt Count 469 K/uL (130-400) H D 07/02/18 06:43 Sodium 133 mmol/l (132-148) 07/05/18 06:30 Potassium 4.3 MMOL/L (3.6-5.0) 07/05/18 06:30 Chloride 98 mmol/L (98-107) 07/05/18 06:30 Carbon Dioxide 28 mmol/L (22-30) 07/05/18 06:30 Anion Gap 11 (10-20) 07/05/18 06:30 BUN 25 mg/dl (9-20) H 07/05/18 06:30 Creatinine 1.2 mg/dl (0.8-1.5) 07/05/18 06:30 Est GFR ( Amer) > 60 07/05/18 06:30 Est GFR (Non-Af Amer) > 60 07/05/18 06:30 Random Glucose 103 mg/dL (75-110) 07/05/18 06:30 Calcium 8.7 mg/dL (8.4-10.2) 07/05/18 06:30 - Hospital Course Hospital Course: 68 yo male with history of CAD, AFib, HLD and Osteoarthritis had left THR on 06/24/2018 after failing conservative management. Post op period was marked with orthostatic hypotension while undergoing therapy and anemia secondary to blood loss warranting transfusion of 3 units of PRBC. Patient was transferred to TCU on 06/30/2018 for PT/OT. Patient did well and now is ready for discharge. Discharge Exam - Head Exam Head Exam: ATRAUMATIC, NORMAL INSPECTION, NORMOCEPHALIC - Eye Exam Eye Exam: absent: Scleral icterus - ENT Exam ENT Exam: Mucous Membranes Moist - Respiratory Exam Respiratory Exam: absent: Rales, Rhonchi, Wheezes, Respiratory Distress - Cardiovascular Exam Cardiovascular Exam: REGULAR RHYTHM, +S1, +S2 - GI/Abdominal Exam GI & Abdominal Exam: Soft. absent: Tenderness - Rectal Exam Rectal Exam: Deferred - Back Exam Back exam: NORMAL INSPECTION - Neurological Exam Neurological exam: Alert, Oriented x3 - Psychiatric Exam Psychiatric exam: Normal Affect - Skin Skin Exam: Dry, Intact Discharge Plan - Follow Up Plan Condition: GOOD Disposition: HOME/ ROUTINE Instructions: Total Hip Replacement (DC) Referrals: Herb Bauer III, MD [Staff Provider] -
== END 2018-07-06 12:50 | disposition home or self-care (01) | DRG 560 ==
LOC: H.TCU 06-30 14:32
PROVIDERS: ADMIT Internal Medicine; ATTEND Internal Medicine
PROC: F07M6FZ Therapeutic Exercise Treatment of Musculoskeletal System - Whole Body using Assistive, Adaptive, Supportive or Protective Equipment (ICD-10-PCS; principal; 2018-06-30)
PROC: F07Z9FZ Gait Training/Functional Ambulation Treatment using Assistive, Adaptive, Supportive or Protective Equipment (ICD-10-PCS; 2018-06-30)
DX: Z47.1 Aftercare following joint replacement surgery (principal); D62 Acute posthemorrhagic anemia; Z96.642 Presence of left artificial hip joint; M54.9 Dorsalgia, unspecified; M79.641 Pain in right hand; E78.00 Pure hypercholesterolemia, unspecified; E78.5 Hyperlipidemia, unspecified; I10 Essential (primary) hypertension; I25.10 Atherosclerotic heart disease of native coronary artery without angina pectoris; I48.91 Unspecified atrial fibrillation; I95.1 Orthostatic hypotension; M16.12 Unilateral primary osteoarthritis, left hip; M51.26 Other intervertebral disc displacement, lumbar region; Z95.5 Presence of coronary angioplasty implant and graft